=== PATIENT | female | born 1960 | race Caucasian/White ===

== ENCOUNTER 2016-11-14 08:51 | Emergency (ER) | payer OTHER ==
--- NOTE | 2016-11-14 09:49 | ED NURSING NOTES ---
Clinical Report - Nurses [facility] [address] [place] [address] 11/14/2016 8:53 Patient: LEAH VICENTE TRIAGE Triage time 09:01. Acuity: LEVEL 5. Chief Complaint: LEFT UPPER TOOTHACHE. 09:04 11/14/16. 09:04 11/14/16. ( pt had tooth extracted, left upper molar. Pt states now she has dental pain left upper area.). --09:08 Kentrell Don R.N. 09:02 11/14/16. BP: 175/94. HR: 110. RR: 18. O2 saturation: 100% on room air. Temp: 97.9 F (oral). --09:08 Kentrell Don R.N. 09:08 11/14/16. Pain level now: 06/18. --09:08 Kentrell Don R.N. Weight: 87.5 kg stated. Height/Length: 67 inches Per Patient. BMI: 30.2. --09:04 Kentrell Don R.N. Medications Acyclovir Oral 400 mg, 3x a day. ALPRAZolam Oral 1 mg, as needed. Atorvastatin Calcium Oral 40 mg, daily. Baclofen Oral 10 mg, as needed. Clobetasol Propionate External. Diltiazem HCl ER Oral 360 mg , daily. Estradiol Oral (Tablet 0.5 mg), daily. Gabapentin Oral 600 mg, 3x a day. HYDROmorphone HCl Oral 2 mg, 3x a day. Insulin Isophane Human Subcutaneous 22 units, 2x a day. Lisinopril Oral 40 mg, daily. Metoprolol Tartrate Oral 50 mg. Morphine Sulfate ER Oral 15 mg . Nabumetone Oral (Tablet 500 mg), 2 x day. Venlafaxine HCl Oral 225 mg , daily. --09:06 Kentrell Don R.N. Amoxicillin Oral. --09:35 Kentrell Don R.N. Medication/allergy information source: the patient. --09:08 Kentrell Don R.N. Allergies Percocet. Tape adhesive. Varenicline. (Chantix) Vicodin. --09:07 Kentrell Don R.N. History Arrived by private vehicle. Historian: patient. Unaccompanied. Primary physician (CARMELO GASPAR). 09:04 11/14/16. Onset. (Monday). 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 PAST MEDICAL HX: The patient has had a hysterectomy. Immunizations not up to date. SOCIAL HX: Current every day light tobacco smoker (cigarette)- less than 1/2 a pack per day. No alcohol use or drug use. No infectious disease exposure. ABUSE ASSESSMENT: No report of abuse. FALL RISK ASSESSMENT: Fall risk assessment completed. No fall risk identified. NUTRITIONAL RISK ASSESSMENT: The nutritional risk assessment revealed no deficiencies. FUNCTIONAL ASSESSMENT: Functional assessment: no impairments noted. LEARNING NEEDS ASSESSMENT: The learning needs assessment revealed no barriers. SKIN INTEGRITY ASSESSMENT: Skin integrity risk assessment completed. No skin integrity risk identified. --09:08 Kentrell Don R.N. PROBLEMS: Pyelonephritis. Fibromyalgia. Panic Attack. Herpes Simplex. Hypercholesterolemia. Hypothyroidism. Depression. Lumbar Radiculopathy. Chronic pain. Atrial Fibrillation. Bipolar Disorder. Neuropathy. Lumbar stenosis. Sciatica. Hypertension. Diabetes Mellitus. --09:07 Kentrell Don R.N. ADDITIONAL SURGERIES: Back Surgery. Cardiac Surgery. Cholecystectomy. . Dental Surgery. Hysterectomy. --09:07 Kentrell Don R.N. Assessment 09:04 11/14/16. --09:08 Kentrell Don R.N. Interventions 09:04 11/14/16. 09:04 11/14/16. ID and allergy band on patient. --09:08 Kentrell Don R.N. PHYSICAL ASSESSMENT 09:09 11/14/16. Ambulatory to room. GENERAL / NEURO / PSYCH: Alert. Oriented X 4. Appears in pain. HEENT: Facial swelling present left upper. CVS: Capillary refill less than 2 seconds. SKIN: Skin is warm and dry. --09:09 Kentrell Don R.N. NURSING PROGRESS NOTES 09:10 11/14/16. The plan of care for this patient has been created. Head of bed elevated. Reassurance given. Two patient identifiers checked. Call light placed in reach. Side rails up x 1. Bed placed in lowest position. Brakes of bed on. Brakes of chair on. --09:10 Kentrell Don R.N. 09:10 11/14/16. Patient ready for evaluation- chart flagged and ED physician notified. --09:10 Kentrell Don R.N. DISPOSITION / DISCHARGE 09:57 11/14/16. Condition at departure: unchanged. Discharge instructions provided and reviewed with the patient. Patient verbalized understanding. Written instructions provided in Maltese. The patient was discharged by the physician. She was discharged home and unaccompanied at time of discharge. She left the Emergency Department ambulatory and via private vehicle. FALL RISK ASSESSMENT: Fall risk assessment completed. No fall risk identified. --09:57 Maribell Mai R.N. 09:54 11/14/16. BP: 155/96. HR: 120. RR: 16. O2 saturation: 96%. Temp: 98.2 F (oral). Pain level now: 06/18. --09:57 Maribell Mai R.N. Departure time: :57. --10:00 Maribell Mai R.N. 10:06 11/14/16. ( aware of rapid heart rate on DC). --10:06 Kentrell Don R.N. Locked/Released at 11/14/2016 10:06 by Kentrell Don R.N.
--- NOTE | 2016-11-14 09:49 | ED CLINICAL REPORT ---
Clinical Report - Physicians/Mid Levels [facility] [address] [place] [address] 11/14/2016 8:53 [id number] Time Seen: 09:03. Arrived- By private vehicle. Historian- patient. HISTORY OF PRESENT ILLNESS Chief Complaint: DENTAL PAIN. This started about 5 days ago and is still present and now worse. It was abrupt in onset. Pain described as moderate. The patient has had toothache and jaw pain. (the patient underwent a dental extraction last week. Since then she has had increasing pain and swelling around the site of the extraction with scant drainage. She was prescribed amoxicillin but says that in spite of this it is getting worse.). REVIEW OF SYSTEMS No chills, fever, sweats, calf pain or chest pain. No cough, difficulty breathing, pedal edema, palpitations or abdominal pain. No constipation, diarrhea, nausea, vomiting or urinary problems. All systems otherwise negative, except as recorded above. PAST HISTORY Problems: Pyelonephritis. Fibromyalgia. Panic Attack. Herpes Simplex. Hypercholesterolemia. Hypothyroidism. Depression. Lumbar Radiculopathy. Chronic pain. Atrial Fibrillation. Bipolar Disorder. Neuropathy. Lumbar stenosis. Sciatica. Hypertension. Diabetes Mellitus. Additional Surgeries: Back Surgery. Cardiac Surgery. Cholecystectomy. . Dental Surgery. Hysterectomy. Medications: Amoxicillin Oral. Acyclovir Oral 400 mg, 3x a day. ALPRAZolam Oral 1 mg, as needed. Atorvastatin Calcium Oral 40 mg, daily. Baclofen Oral 10 mg, as needed. Clobetasol Propionate External. Diltiazem HCl ER Oral 360 mg , daily. Estradiol Oral (Tablet 0.5 mg), daily. Gabapentin Oral 600 mg, 3x a day. HYDROmorphone HCl Oral 2 mg, 3x a day. Insulin Isophane Human Subcutaneous 22 units, 2x a day. Lisinopril Oral 40 mg, daily. Metoprolol Tartrate Oral 50 mg. Morphine Sulfate ER Oral 15 mg . Nabumetone Oral (Tablet 500 mg), 2 x day. Venlafaxine HCl Oral 225 mg , daily. Allergies: Percocet. Tape adhesive. Varenicline. (Chantix) Vicodin. SOCIAL HISTORY Current every day light tobacco smoker (cigarette)- less than 1/2 a pack per day. No alcohol use or drug use. FAMILY HISTORY Denies family medical history. ADDITIONAL NOTES The nursing notes have been reviewed. PHYSICAL EXAM Vital Signs: 11/14/2016 09:02 BP: 175/94. HR: 110. RR: 18. O2 saturation: 100%. Temp: 97.9 F. Have been reviewed. Heart rate: 88 regular per my evaluation. Appearance: Alert. Eyes: Pupils equal, round and reactive to light. ENT: Severe dental tenderness with gingival tenderness, induration and swelling (upper left premolars) (Surrounding her extraction site). Pharynx normal. No trismus present. Uvula midline. Neck: Trachea midline. No adenopathy. Thyroid normal. Neck supple. CVS: Normal heart rate and rhythm. Heart sounds normal. Respiratory: No respiratory distress. Breath sounds normal. Abdomen: Soft. No organomegaly. Skin: Normal skin color. Normal skin turgor. Extremities: Extremities exhibit normal ROM. PROGRESS AND PROCEDURES Course of Care: Patient is stable. Patient/family counseled. Old medical records reviewed. Disposition: Discharged. Condition: stable. CLINICAL IMPRESSION Severe dental pain. INSTRUCTIONS Drink plenty of fluids. Warnings: Further evaluation is necessary. GENERAL WARNINGS: Return or contact your physician immediately if your condition worsens or changes unexpectedly, if not improving as expected, or if other problems arise. Your Current Medications: STOP TAKING THE FOLLOWING MEDICATIONS: Amoxicillin Oral. CONTINUE TAKING THE FOLLOWING MEDICATIONS: Acyclovir Oral : 400 mg 3x a day. ALPRAZolam Oral : 1 mg, prn. Atorvastatin Calcium Oral : 40 mg daily. Baclofen Oral : 10 mg, prn. Clobetasol Propionate External. Diltiazem HCl ER Oral : 360 mg daily. Estradiol Oral : Tablet 0.5 mg, daily. Gabapentin Oral : 600 mg 3x a day. HYDROmorphone HCl Oral : 2 mg 3x a day. Insulin Isophane Human Subcutaneous : 22 units 2x a day. Lisinopril Oral : 40 mg daily. Metoprolol Tartrate Oral : 50 mg. Morphine Sulfate ER Oral : 15 mg. Nabumetone Oral : Tablet 500 mg, 2 x day. Venlafaxine HCl Oral : 225 mg daily. Prescription Medications: Clindamycin 300 mg: take 1 capsule orally every 6 hours for 7 days. No refills. Follow-up: Follow up with a dentist today. Call for the next available appointment. Understanding of the discharge instructions verbalized by patient. (Electronically signed by Say Verduzco MD 11/14/2016 10:58)
--- NOTE | 2016-11-14 10:59 | ED MED RECONCILIATION SUMMARY ---
Patient: LEAH VICENTE Medication Reconciliation Report [facility] VisitID: [id number] [address] [place] [address] 56y, F Registration Date/Time: 11/14/2016 Weight: 87.5 kg Height/Length: 67 in. BMI: 30.2 ALLERGIES: Percocet, Tape adhesive, Varenicline, Vicodin The patient's Home Medications are listed below: STOP TAKING THE FOLLOWING MEDICATIONS: Amoxicillin Oral CONTINUE TAKING THE FOLLOWING MEDICATIONS: Acyclovir Oral 400 mg, 3x a day ALPRAZolam Oral 1 mg Atorvastatin Calcium Oral 40 mg, daily Baclofen Oral 10 mg Clobetasol Propionate External Diltiazem HCl ER Oral 360 mg , daily Estradiol Oral (0.5 mg), daily Gabapentin Oral 600 mg, 3x a day HYDROmorphone HCl Oral 2 mg, 3x a day Insulin Isophane Human Subcutaneous 22 units, 2x a day Lisinopril Oral 40 mg, daily Metoprolol Tartrate Oral 50 mg Morphine Sulfate ER Oral 15 mg Nabumetone Oral (500 mg), 2 x day Venlafaxine HCl Oral 225 mg , daily The source(s) of the original Home Medication information: patient The following Medications were given to the patient in the Emergency Department: None. The following Medications were prescribed to the patient: Clindamycin 300 mg: take 1 capsule orally every 6 hours for 7 days. No refills. -- Say Verduzco MD
--- NOTE | 2016-11-14 10:59 | ED MAR SUMMARY ---
..... Medication Administration Record [facility] [address] [place], [place] [id number] Patient: LEAH VICENTE Visit ID: [id number] 56y, F Weight: 87.5 kg Height/Length: 67 in BMI: 30.2 ALLERGIES: Percocet, Tape adhesive, Varenicline, Vicodin
--- NOTE | 2016-11-14 10:59 | ED MAR SUMMARY ---
..... Medication Administration Record [facility] [address], [place] [id number] Patient: LEAH VICENTE Visit ID: [id number] 56y, F Weight: 87.5 kg Height/Length: 67 in BMI: 30.2 ALLERGIES: Percocet, Tape adhesive, Varenicline, Vicodin
--- NOTE | 2016-11-14 10:59 | ED MED RECONCILIATION SUMMARY ---
Patient: LEAH VICENTE Medication Reconciliation Report [facility] VisitID: [id number] [address] [place] [address] 56y, F Registration Date/Time: 11/14/2016 Weight: 87.5 kg Height/Length: 67 in. BMI: 30.2 ALLERGIES: Percocet, Tape adhesive, Varenicline, Vicodin The patient's Home Medications are listed below: STOP TAKING THE FOLLOWING MEDICATIONS: Amoxicillin Oral CONTINUE TAKING THE FOLLOWING MEDICATIONS: Acyclovir Oral 400 mg, 3x a day ALPRAZolam Oral 1 mg Atorvastatin Calcium Oral 40 mg, daily Baclofen Oral 10 mg Clobetasol Propionate External Diltiazem HCl ER Oral 360 mg , daily Estradiol Oral (0.5 mg), daily Gabapentin Oral 600 mg, 3x a day HYDROmorphone HCl Oral 2 mg, 3x a day Insulin Isophane Human Subcutaneous 22 units, 2x a day Lisinopril Oral 40 mg, daily Metoprolol Tartrate Oral 50 mg Morphine Sulfate ER Oral 15 mg Nabumetone Oral (500 mg), 2 x day Venlafaxine HCl Oral 225 mg , daily The source(s) of the original Home Medication information: patient The following Medications were given to the patient in the Emergency Department: None. The following Medications were prescribed to the patient: Clindamycin 300 mg: take 1 capsule orally every 6 hours for 7 days. No refills. -- Say Verduzco MD
--- NOTE | 2016-11-14 10:59 | ED DISCHARGE INSTRUCTIONS ---
Patient: LEAH VICENTE General Instructions [facility] VisitID: [id number] [place] [address] 56y, F Registration Date/Time: 11/14/2016 Severe dental pain. INSTRUCTIONS Drink plenty of fluids. Warnings: Further evaluation is necessary. GENERAL WARNINGS: Return or contact your physician immediately if your condition worsens or changes unexpectedly, if not improving as expected, or if other problems arise. Your Current Medications: STOP TAKING THE FOLLOWING MEDICATIONS: Amoxicillin Oral. CONTINUE TAKING THE FOLLOWING MEDICATIONS: Acyclovir Oral : 400 mg 3x a day. ALPRAZolam Oral : 1 mg, prn. Atorvastatin Calcium Oral : 40 mg daily. Baclofen Oral : 10 mg, prn. Clobetasol Propionate External. Diltiazem HCl ER Oral : 360 mg daily. Estradiol Oral : Tablet 0.5 mg, daily. Gabapentin Oral : 600 mg 3x a day. HYDROmorphone HCl Oral : 2 mg 3x a day. Insulin Isophane Human Subcutaneous : 22 units 2x a day. Lisinopril Oral : 40 mg daily. Metoprolol Tartrate Oral : 50 mg. Morphine Sulfate ER Oral : 15 mg. Nabumetone Oral : Tablet 500 mg, 2 x day. Venlafaxine HCl Oral : 225 mg daily. Prescription Medications: Clindamycin 300 mg: take 1 capsule orally every 6 hours for 7 days. No refills. Follow-up: Follow up with a dentist today. Call for the next available appointment. Understanding of the discharge instructions verbalized by patient. ADDITIONAL INFORMATION Dental Pain A crack or cavity in the tooth, which exposes the sensitive inner area of the tooth can cause tooth pain. An infection in the gum or the root of the tooth can cause pain and swelling. The pain is often made worse by drinking hot or cold fluids, or biting on hard foods. Pain may spread from the tooth to the ear or jaw on the same side. Home Care: Avoid hot and cold foods and liquids since your tooth may be sensitive to temperature changes. If your tooth is chipped or cracked, or if there is a large open cavity, apply OIL OF CLOVES (available [id number] in drug stores) directly to the tooth to reduce pain. Some pharmacies carry an [id number] "toothache kit." This contains a paste, which can be applied over the exposed tooth to decrease sensitivity. A cold pack on your jaw over the sore area may help reduce pain. You may use acetaminophen (Tylenol) or ibuprofen (Motrin, Advil) to control pain, unless another medicine was prescribed. [ NOTE: If you have chronic liver or kidney disease or ever had a stomach ulcer or GI bleeding, talk with your doctor before using these medicines.] If you have signs of an infection, an antibiotic will be given. Take it as directed. Follow-Up as directed with a dentist. Your pain may go away with the treatment given. However, only a dentist can fully evaluate and treat the cause and prevent the pain from coming back again. TOOTHACHE IS A SIGN OF DISEASE IN YOUR TOOTH AND SHOULD BE EXAMINED AND TREATED BY A DENTIST. Get Prompt Medical Attention if any of the following occur: Your face becomes swollen or red Pain worsens or spreads to the neck Fever over 100.4 F (38.0 C) Unusual drowsiness; headache or stiff neck; weakness or fainting Pus drains from the tooth Difficulty swallowing or breathing Clindamycin Hydrochloride Oral capsule What is this medicine? CLINDAMYCIN (KLIN da ROCIO sin) is a lincosamide antibiotic. It is used to treat certain kinds of bacterial infections. It will not work for colds, flu, or other viral infections. How should I use this medicine? Take this medicine by mouth with a full glass of water. Follow the directions on the prescription label. You can take this medicine with food or on an empty stomach. If the medicine upsets your stomach, take it with food. Take your medicine at regular intervals. Do not take your medicine more often than directed. Take all of your medicine as directed even if you think your are better. Do not skip doses or stop your medicine early. Talk to your technical support consultant regarding the use of this medicine in children. Special care may be needed. What side effects may I notice from receiving this medicine? Side effects that you should report to your doctor or health reservoir caretaker as soon as possible: allergic reactions like skin rash, itching or hives, swelling of the face, lips, or tongue dark urine pain on swallowing redness, blistering, peeling or loosening of the skin, including inside the mouth unusual bleeding or bruising unusually weak or tired yellowing of eyes or skin Side effects that usually do not require medical attention (report to your doctor or health reservoir caretaker if they continue or are bothersome): diarrhea itching in the rectal or genital area joint pain nausea, vomiting stomach pain What may interact with this medicine? chloramphenicol erythromycin kaolin products What if I miss a dose? If you miss a dose, take it as soon as you can. If it is almost time for your next dose, take only that dose. Do not take double or extra doses. Where should I keep my medicine? Keep out of the reach of children. Store at room temperature between 20 and 25 degrees C (68 and 77 degrees F). Throw away any unused medicine after the expiration date. What should I tell my health care provider before I take this medicine? They need to know if you have any of these conditions: kidney disease liver disease stomach problems like colitis an unusual or allergic reaction to clindamycin, lincomycin, or other medicines, foods, dyes like tartrazine or preservatives or trying to get breast-feeding What should I watch for while using this medicine? Tell your doctor or healthcare professional if your symptoms do not start to get better or if they get worse. Do not treat diarrhea with over the counter products. Contact your doctor if you have diarrhea that lasts more than 2 days or if it is severe and watery. You have been given the following additional information: Dental Pain Clindamycin Hydrochloride Oral capsule (Electronically signed by Say Verduzco MD 11/14/2016 10:58)
--- NOTE | 2016-11-14 10:59 | ED DISCHARGE INSTRUCTIONS ---
Patient: LEAH VICENTE General Instructions [facility] VisitID: [id number] [place] [address] 56y, F Registration Date/Time: 11/14/2016 Severe dental pain. INSTRUCTIONS Drink plenty of fluids. Warnings: Further evaluation is necessary. GENERAL WARNINGS: Return or contact your physician immediately if your condition worsens or changes unexpectedly, if not improving as expected, or if other problems arise. Your Current Medications: STOP TAKING THE FOLLOWING MEDICATIONS: Amoxicillin Oral. CONTINUE TAKING THE FOLLOWING MEDICATIONS: Acyclovir Oral : 400 mg 3x a day. ALPRAZolam Oral : 1 mg, prn. Atorvastatin Calcium Oral : 40 mg daily. Baclofen Oral : 10 mg, prn. Clobetasol Propionate External. Diltiazem HCl ER Oral : 360 mg daily. Estradiol Oral : Tablet 0.5 mg, daily. Gabapentin Oral : 600 mg 3x a day. HYDROmorphone HCl Oral : 2 mg 3x a day. Insulin Isophane Human Subcutaneous : 22 units 2x a day. Lisinopril Oral : 40 mg daily. Metoprolol Tartrate Oral : 50 mg. Morphine Sulfate ER Oral : 15 mg. Nabumetone Oral : Tablet 500 mg, 2 x day. Venlafaxine HCl Oral : 225 mg daily. Prescription Medications: Clindamycin 300 mg: take 1 capsule orally every 6 hours for 7 days. No refills. Follow-up: Follow up with a dentist today. Call for the next available appointment. Understanding of the discharge instructions verbalized by patient. ADDITIONAL INFORMATION Dental Pain A crack or cavity in the tooth, which exposes the sensitive inner area of the tooth can cause tooth pain. An infection in the gum or the root of the tooth can cause pain and swelling. The pain is often made worse by drinking hot or cold fluids, or biting on hard foods. Pain may spread from the tooth to the ear or jaw on the same side. Home Care: Avoid hot and cold foods and liquids since your tooth may be sensitive to temperature changes. If your tooth is chipped or cracked, or if there is a large open cavity, apply OIL OF CLOVES (available [id number]-memkxxo in drug stores) directly to the tooth to reduce pain. Some pharmacies carry an hxyk-mnd-boeedjn "toothache kit." This contains a paste, which can be applied over the exposed tooth to decrease sensitivity. A cold pack on your jaw over the sore area may help reduce pain. You may use acetaminophen (Tylenol) or ibuprofen (Motrin, Advil) to control pain, unless another medicine was prescribed. [ NOTE: If you have chronic liver or kidney disease or ever had a stomach ulcer or GI bleeding, talk with your doctor before using these medicines.] If you have signs of an infection, an antibiotic will be given. Take it as directed. Follow-Up as directed with a dentist. Your pain may go away with the treatment given. However, only a dentist can fully evaluate and treat the cause and prevent the pain from coming back again. TOOTHACHE IS A SIGN OF DISEASE IN YOUR TOOTH AND SHOULD BE EXAMINED AND TREATED BY A DENTIST. Get Prompt Medical Attention if any of the following occur: Your face becomes swollen or red Pain worsens or spreads to the neck Fever over 100.4 F (38.0 C) Unusual drowsiness; headache or stiff neck; weakness or fainting Pus drains from the tooth Difficulty swallowing or breathing Clindamycin Hydrochloride Oral capsule What is this medicine? CLINDAMYCIN (KLIN da ROCIO sin) is a lincosamide antibiotic. It is used to treat certain kinds of bacterial infections. It will not work for colds, flu, or other viral infections. How should I use this medicine? Take this medicine by mouth with a full glass of water. Follow the directions on the prescription label. You can take this medicine with food or on an empty stomach. If the medicine upsets your stomach, take it with food. Take your medicine at regular intervals. Do not take your medicine more often than directed. Take all of your medicine as directed even if you think your are better. Do not skip doses or stop your medicine early. Talk to your clinical informatics spec regarding the use of this medicine in children. Special care may be needed. What side effects may I notice from receiving this medicine? Side effects that you should report to your doctor or health health care facilities inspector as soon as possible: allergic reactions like skin rash, itching or hives, swelling of the face, lips, or tongue dark urine pain on swallowing redness, blistering, peeling or loosening of the skin, including inside the mouth unusual bleeding or bruising unusually weak or tired yellowing of eyes or skin Side effects that usually do not require medical attention (report to your doctor or health health care facilities inspector if they continue or are bothersome): diarrhea itching in the rectal or genital area joint pain nausea, vomiting stomach pain What may interact with this medicine? chloramphenicol erythromycin kaolin products What if I miss a dose? If you miss a dose, take it as soon as you can. If it is almost time for your next dose, take only that dose. Do not take double or extra doses. Where should I keep my medicine? Keep out of the reach of children. Store at room temperature between 20 and 25 degrees C (68 and 77 degrees F). Throw away any unused medicine after the expiration date. What should I tell my health care provider before I take this medicine? They need to know if you have any of these conditions: kidney disease liver disease stomach problems like colitis an unusual or allergic reaction to clindamycin, lincomycin, or other medicines, foods, dyes like tartrazine or preservatives or trying to get breast-feeding What should I watch for while using this medicine? Tell your doctor or healthcare professional if your symptoms do not start to get better or if they get worse. Do not treat diarrhea with over the counter products. Contact your doctor if you have diarrhea that lasts more than 2 days or if it is severe and watery. You have been given the following additional information: Dental Pain Clindamycin Hydrochloride Oral capsule (Electronically signed by Say Verduzco MD 11/14/2016 10:58)
== END 2016-11-14 09:57 | disposition home or self-care (01) ==
LOC: ED SRH 08:51
DX: K08.89 Other specified disorders of teeth and supporting structures (principal); I10 Essential (primary) hypertension; E11.9 Type 2 diabetes mellitus without complications; F17.210 Nicotine dependence, cigarettes, uncomplicated; Z79.899 Other long term (current) drug therapy; Z88.5 Allergy status to narcotic agent; Z88.8 Allergy status to other drugs, medicaments and biological substances; Z79.4 Long term (current) use of insulin

== ENCOUNTER 2017-04-22 13:34 | Emergency (ER) | payer OTHER ==
--- NOTE | 2017-04-22 15:41 | ED CLINICAL REPORT ---
Clinical Report - Physicians/Mid Levels [facility] [address] [place] [address] 04/22/2017 13:34 [id number] Time Seen: 13:50. Arrived- By private vehicle. Historian- patient. HISTORY OF PRESENT ILLNESS Chief Complaint: low back pain. This started several days ago and is still present. It was abrupt in onset and has been constant and waxing/waning. (She says that she is "dehydrated.". She reports symptoms of increased hunger and thirst and urination." It goes right through me." She is taking metformin and glimepiride for diabetes. In the past she was on Lantus and Humalog however this was stopped about 3 months ago. She reports her hemoglobin A1c was 13 but came down to 9 She doesn't know what it is now.). Similar symptoms previously: Many times, chronically. Recent medical care: The patient was seen recently at another facility in the emergency department. Seen for similar symptoms. Evaluation/treatment: x-rays and labs. ( she was seen at [facility] for similar symptoms. She reports that they did lab work treated her with medications and IV fluids. She reports they did a CT scan which was normal.). REVIEW OF SYSTEMS No chills, fever, sweats, calf pain or chest pain. No cough, difficulty breathing, pedal edema, palpitations or abdominal pain. No constipation, diarrhea, nausea or vomiting. She has had severe lower back pain. She has had diabetic symptoms, including polydipsia, polyuria, polyphagia and fatigue. It has been similar to previous symptoms. All systems otherwise negative, except as recorded above. PAST HISTORY PCP - CARMELO GASPAR at the [facility]. Problems: Dental Pain. Pyelonephritis. Fibromyalgia. Panic Attack. Herpes Simplex. Hypercholesterolemia. Hypothyroidism. Depression. Lumbar Radiculopathy. Chronic pain. Atrial Fibrillation. Bipolar Disorder. Neuropathy. Lumbar stenosis. Sciatica. Hypertension. Diabetes Mellitus. Additional Surgeries: Back Surgery. Cardiac Surgery. Cholecystectomy. . Dental Surgery. Hysterectomy. Medications: Remeron Oral (Tablet 30 mg) 1 tablet, at bedtime. Venlafaxine HCl Oral 225 mg , daily. Zofran Oral (Tablet 4 mg) 1 tablet, 3x a day. MetFORMIN HCl Oral (Tablet 500 mg) 4 tablets, at bedtime. Amaryl Oral (Tablet 1 mg) 1 tablet, 2x a day. Clotrimazole External. Combivent. Clotrima. Nabumetone Oral (Tablet 500 mg), 2 x day. ALPRAZolam Oral 1 mg, as needed. Baclofen Oral 10 mg, as needed. Clobetasol Propionate External. Diltiazem HCl ER Oral 360 mg , daily. Gabapentin Oral 600 mg, 3x a day. Metoprolol Tartrate Oral 50 mg. Morphine Sulfate ER Oral 15 mg . Allergies: Chantix. Medical tape. SOCIAL HISTORY Current every day heavy tobacco smoker (cigarette)- less than 1 pack per day. No alcohol use or drug use. ADDITIONAL NOTES The nursing notes have been reviewed. PHYSICAL EXAM Vital Signs: 04/22/2017 13:50 BP: 150/78. HR: 94. RR: 16. O2 saturation: 93%. Temp: 98.1 F. Pain level now: 03/18. Have been reviewed. Appearance: Alert. She is morbidly obese. Eyes: Pupils equal, round and reactive to light. ENT: Pharynx normal. Neck: Normal inspection. Neck supple. CVS: Normal heart rate and rhythm. Heart sounds normal. Respiratory: No respiratory distress. Decreased air movement. Abdomen: No visible injury. Soft and nontender. Bowel sounds normal. No organomegaly. No mass. Obese. Back: Moderate tenderness in the left mid and lower lumbar area. Severe muscle spasm in the left mid and lower lumbar spine region. No CVA tenderness. Skin: Skin warm and dry. Normal skin color. Normal skin turgor. Extremities: Extremities exhibit normal ROM. No calf tenderness. No lower extremity edema. LABS, X-RAYS, AND EKG LS-Spine X-rays: (IMPRESSION: 1. Loss of lordosis suggestive of muscular spasm 2. Mild L4-5 and severe L5-S1 disc space narrowing). The X-rays were interpreted by the radiologist and contemporaneously by me. Laboratory Tests: UA-Culture if indicated: (FRANCISCO JAVIER: 04/22/2017 14:17) ( MsgRcvd 04/22/2017 14:46) Final results Test Result Flag Units (Reference) URINE COLOR YELLOW URINE APPEARANCE CLEAR URINE GLUCOSE 3+ (NEGATIVE) URINE BILIRUBIN NEGATIVE (NEGATIVE) URINE KETONE NEGATIVE (NEGATIVE) URINE SPECIFIC GRAVITY 1.010 (1.010-1.030) URINE PH 6.0 (5.0-8.0) URINE PROTEIN NEGATIVE (NEGATIVE) URINE UROBILINOGEN 0.2 EU/dL (0.2-1.0) URINE NITRITE NEGATIVE (NEGATIVE) URINE BLOOD NEGATIVE (NEGATIVE) URINE LEUK ESTERASE NEGATIVE (NEGATIVE) URINE RBC NONE SEEN rbc/hpf (0-1) URINE WBC NONE SEEN wbc/hpf (0-1) URINE EPITHELIAL CELLS 3-5 EPI/hpf (0-5) URINE BACTERIA MANY (4+) (NONE SEEN) URINE COMMENT CULTURE INDICATED URINE CULTURES ARE SET-UP BASED ON THE FOLLOWING CRITERIA:POSITIVE NITRITEPOSITIVE LEUKOCYTE ESTERASEGREATER THAN 10 WHITE BLOOD CELLSMODERATE (2+) OR GREATER BACTERIA CBC w Diff: (FRANCISCO JAVIER: 04/22/2017 14:17) ( [facility] 04/22/2017 14:31) Final results Test Result Flag Units (Reference) WHITE BLOOD COUNT 15.2 H K/uL (4.5-11.5) RED BLOOD COUNT 4.46 M/uL (4.00-5.20) HEMOGLOBIN 13.6 gm/dL (12.0-16.0) HEMATOCRIT 40.6 % (36.0-46.0) MEAN CELL VOLUME 91 fL (80-100) MEAN CORPUSCULAR HGB 30 pg (26-34) MEAN CORPUSCULAR HGB CONC 33 g/dL (31-37) RED CELL DISTRIBUTION WIDTH 13.8 % (11.6-14.8) PLATELET COUNT 329 K/uL (150-400) NEUTROPHIL % 73.5 % (50-75) LYMPH % 17.8 L % (25-40) MONO % 4.6 % (3-14) EOSINOPHIL % 3.1 % (0-4) BASOPHIL % 1.0 % (0-2) Acetone, Serum: (FRANCISCO JAVIER: 04/22/2017 14:17) ( [facility] 04/22/2017 15:06) Final results Test Result Flag Units (Reference) ACETONE, SERUM QUALITATIVE NEGATIVE (NEGATIVE) CMP: (FRANCISCO JAVIER: 04/22/2017 14:17) ( MsgRcvd 04/22/2017 14:55) Final results Test Result Flag Units (Reference) GLUCOSE 620 *H mg/dL (70-110) CRITICAL RESULTS CALLEDCalled to LEAH MELGOZA ED 04/22/17 1454Were 2 patient identifiers used? YWas the result read back? Y BUN 24 H mg/dL (7-18) CREATININE 1.6 H mg/dL (0.6-1.3) Estimated GFR 35.70 mL/min Estimated GFR- 43.27 mL/min Note: Persistent reduction over 3 months in eGFR<60 mL/min/1.73 m2 defines CKD. Patients with eGFR values>=60 mL/min/1.73 m2 may also have CKD if evidence ofpersistent proteinuria. Additional information may be foundat www.kidney.org. SODIUM 132 L mmol/L (136-145) POTASSIUM 4.4 mmol/L (3.5-5.1) CHLORIDE 96 L mmol/L (98-107) CARBON DIOXIDE 23 mmol/L (21-32) CALCIUM 8.4 L mg/dL (8.5-10.1) TOTAL PROTEIN 6.5 g/dL (6.4-8.2) ALBUMIN 3.1 L g/dL (3.3-5.0) BILIRUBIN, TOTAL 0.3 mg/dL (0.0-1.0) ALKALINE PHOSPHATASE 133 H U/L (46-116) AST (SGOT) 13 L U/L (15-37) ALT (SGPT) 27 U/L (12-78) LIPASE 245 U/L (73-393) AMYLASE 39 U/L (25-115) ABG: (FRANCISCO JAVIER: 04/22/2017 15:03) ( MsgRcvd 04/22/2017 15:33) Final results Test Result Flag Units (Reference) FIO2 0.21 L % (20-101) ABG MODE OF DELIVERY RA MODIFIED JEFRY TEST POSITIVE? YES ABG PATIENT RESP RATE 18 /MIN ARTERIAL BLOOD GAS SITE RR ARTERIAL BLOOD GAS pH 7.39 (7.35-7.45) ABG PCO2 39.3 mmHg (35-45) ABG PO2 63.0 L mmHg (80.0-100.0) ABG BASE EXCESS -1.1 H mmol/L (-6.0--6.0) ABG HCO3 23.7 mmol/L (20.0-26.0) ABG TCO2 25.0 mmol/L (24.0-30.0) ABG NpPxS3c 42.2 H mmHg (7.0-14.0) *NOTE: Normal rangeis based on aFIO2 of 21% ABG SAT O2 93.2 L % (95.1-100.0) ABG TOTAL HEMOGLOBIN 13.0 g/dL (12.0-16.0) ABG O2 HEMOGLOBIN 87.7 L % (95.0-100.0) ABG CARBOXYHEMOGLOBIN 5.5 H % (0.5-1.5) ABG METHEMOGLOBIN 0.4 % (0.4-1.5) ABG RHEMOGLOBIN 6.4 % . PROGRESS AND PROCEDURES Course of Care: Patient is stable. Patient/family counseled. Old medical records reviewed. Disposition: Discharged. Condition: stable. CLINICAL IMPRESSION Chronic lumbar back pain associated with degenerative disc disease of the lumbar spine. Poorly controlled type 2 diabetes with hyperglycemia and hyperosmolar nonketotic state. INSTRUCTIONS No driving or operating machinery while taking medication. Sedative medication was given during your visit. (talk with your doctor about returning to the use of insulin as discussed.). Warnings: Further evaluation is necessary. GENERAL WARNINGS: Return or contact your physician immediately if your condition worsens or changes unexpectedly, if not improving as expected, or if other problems arise. Your Current Medications: CONTINUE TAKING THE FOLLOWING MEDICATIONS: ALPRAZolam Oral : 1 mg, prn. Amaryl Oral : Tablet 1 mg, 1 tablet 2x a day. Baclofen Oral : 10 mg, prn. Clobetasol Propionate External. Clotrima*. Clotrimazole External. Combivent*. Diltiazem HCl ER Oral : 360 mg daily. Gabapentin Oral : 600 mg 3x a day. MetFORMIN HCl Oral : Tablet 500 mg, 4 tablets at bedtime. Metoprolol Tartrate Oral : 50 mg. Morphine Sulfate ER Oral : 15 mg. Nabumetone Oral : Tablet 500 mg, 2 x day. Remeron Oral : Tablet 30 mg, 1 tablet at bedtime. Venlafaxine HCl Oral : 225 mg daily. Zofran Oral : Tablet 4 mg, 1 tablet 3x a day. Follow-up: Follow up with your doctor Monday in four days as scheduled. Understanding of the discharge instructions verbalized by patient. (Electronically signed by Say Verduzco MD 04/22/2017 19:17)
--- NOTE | 2017-04-22 15:41 | ED ORDER SUMMARY ---
..... Patient: LEAH VICENTE OrderSheet [facility] VisitID: [id number] [place] [address] 56y, F Registration Date/Time: 04/22/2017 ORDER SHEET Weight: 87 kg (estimated) Allergies: Chantix, Medical tape GENERAL ORDERS: CBC w Diff Urgent (14:12 04/22/2017 Williams POLLARD) (Ack 14:16 Mayra) (14:23 KKnebel R.N.) CMP Urgent (14:12 04/22/2017 Williams POLLARD) (Ack 14:16 Mayra) (14:23 KKnebel R.N.) Amylase Urgent (14:12 04/22/2017 Williams POLLARD) (Ack 14:16 Mayra) (14:23 KKnebel R.N.) Lipase Urgent (14:12 04/22/2017 Williams POLLARD) (Ack 14:16 Mayra) (14:23 KKnebel R.N.) UA-Culture if indicated Urgent (14:12 04/22/2017 Williams POLLARD) (Ack 14:16 Mayra) (14:23 KKnebel R.N.) Acetone, Serum Urgent (14:55 04/22/2017 Williams POLLARD) (15:02 KKnebel R.N.) ABG (G) Urgent (15:03 04/22/2017 Williams POLLARD) (Ack 15:16 AMcQuoid ER Tech1) (15:35 KKnebel R.N.) Lumbar Spine 2 or 3V Urgent (15:05 04/22/2017 Williams POLLARD) (Ack 15:16 AMcQuoid ER Tech1) (15:17 KKnebel R.N.) POC Glucose (15:37 04/22/2017 Williams POLLARD) (15:44 KKnebel R.N.) - (Hemoglobin A1c) (18:43 04/22/2017 Williams POLLARD) (18:52 AMcQuoid ER Tech1) MEDICATION ORDERS: Nicotine Topical 21 mg (NOW) (15:46 04/22/2017 Williams POLLARD) (15:47 KKnebel R.N.) Insulin Reg Subcut 6 units (HIGH ALERT MEDICATION, NOW) (17:23 04/22/2017 Shazia R.N. verbal order read back to Williams POLLARD) (17:24 Shazia R.N.) IV FLUIDS: IV NS : initial bolus 500 mL (1000 mL/hr), then 125 mL/hr for 4h (NOW); Urgent (14:12 04/22/2017 Williams POLLARD) (14:23 Shazia R.N.) (Cancelled: Other14:55 Williams POLLARD) IV NS : initial bolus 1000 mL (1000 mL/hr), then 1000 mL/hr for X2 (NOW); Urgent (14:55 04/22/2017 Williams POLLARD) (15:36 Shazia R.N.) Insulin Reg IV 6 units (HIGH ALERT MEDICATION, NOW) (15:02 04/22/2017 Williams POLLARD) (15:10 Shazia R.N.) Valium IV 2 mg (HIGH ALERT MEDICATION, NOW) (15:04 04/22/2017 Williams POLLARD) (15:35 Shazia R.N.) ORDER SHEET NOTES: [Electronically signed by Say Verduzco MD (19:17 04/22/2017)] [Electronically signed by Leah Dodson R.N. (21:19 04/22/2017)] [Electronically locked/signed by Leah Dodson R.N. (21:19 04/22/2017)]
--- NOTE | 2017-04-22 15:41 | ED NURSING NOTES ---
Clinical Report - Nurses Formerly [facility] [address] [place] [address] 04/22/2017 13:34 [id number] TRI[facility] Triage time 13:50 Apr 22 2017. Acuity: LEVEL 3. Chief Complaint: (left flank pain). Alert. No acute distress. ( pt states with her pain meds her pain in normally 10). TAYLOR COMA SCORE: Zion Coma Scale: 15- eyes open spontaneously (4); best verbal response- oriented x 4 (5); best motor response- obeys commands (6). --14:03 Leah Dodson R.N. 13:50 04/22/17. BP: 150/78. HR: 94. RR: 16. O2 saturation: 93%. Temp: 98.1 F. Pain level now: 03/18. --14:03 Leah Dodson R.N. Weight: 87 kg estimated. Height/Length: 67 inches Estimated. BMI: 30.1. --21:19 Leah Dodson R.N. Medications ALPRAZolam Oral 1 mg, as needed. Baclofen Oral 10 mg, as needed. Clobetasol Propionate External. Diltiazem HCl ER Oral 360 mg , daily. Gabapentin Oral 600 mg, 3x a day. Metoprolol Tartrate Oral 50 mg. Morphine Sulfate ER Oral 15 mg . --13:52 Leah Dodson R.N. Nabumetone Oral (Tablet 500 mg), 2 x day. --13:52 Leah Dodson R.N. Clotrima. --13:53 Leah Dodson R.N. Combivent. --13:54 Leah Dodson R.N. Amaryl Oral (Tablet 1 mg) 1 tablet, 2x a day. Clotrimazole External. --13:54 Leah Dodson R.N. MetFORMIN HCl Oral (Tablet 500 mg) 4 tablets, at bedtime. --13:55 Leah Dodson R.N. Zofran Oral (Tablet 4 mg) 1 tablet, 3x a day. --13:55 Leah Dodson R.N. Venlafaxine HCl Oral 225 mg , daily. --13:56 Leah Dodson R.N. Remeron Oral (Tablet 30 mg) 1 tablet, at bedtime. --13:56 Leah Dodson R.N. Allergies Chantix. --13:56 Leah Dodson R.N. Medical tape. --13:56 Leah Dodson R.N. History Arrived by private vehicle. Historian: patient. Onset. (about 4 days ago). No history of recent trauma. Treatment DURABLE MEDICAL EQUIPMENT TECHNICIAN: Recently seen at another facility; CT done; labs done- CBC, chemistries and urinalysis; treatment- pain medication and other medication. PAST MEDICAL HX: Tetanus status: up-to-date. Immunizations: up-to-date. SOCIAL HX: Current every day heavy tobacco smoker (cigarette)- less than 1 pack per day. No alcohol use or drug use. No infectious disease exposure. SELF HARM ASSESSMENT: A self harm assessment was performed. The patient answered "no" to the question "Do you have thoughts of harming or killing yourself?" and "Have you recently had thoughts about harming or killing others?". FALL RISK ASSESSMENT: Fall risk assessment completed. No fall risk identified. NUTRITIONAL RISK ASSESSMENT: The nutritional risk assessment revealed no deficiencies. LEARNING NEEDS ASSESSMENT: The learning needs assessment revealed no barriers. ABUSE ASSESSMENT: Abuse assessment: The patient was asked "Do you feel safe in your home?". FUNCTIONAL ASSESSMENT: Functional assessment performed: independent with the activities of daily living; mobility impairment present- this mobility impairment is an ongoing problem. The patient is under physician care for hers functional impairment. SKIN INTEGRITY ASSESSMENT: Skin integrity risk assessment completed. No skin integrity risk identified. --14:03 Leah Dodson R.N. PROBLEMS: Dental Pain. Pyelonephritis. Fibromyalgia. Panic Attack. Herpes Simplex. Hypercholesterolemia. Hypothyroidism. Depression. Lumbar Radiculopathy. Chronic pain. Atrial Fibrillation. Bipolar Disorder. Neuropathy. Lumbar stenosis. Sciatica. Hypertension. Diabetes Mellitus. --13:57 Leah Dodson R.N. ADDITIONAL SURGERIES: Back Surgery. Cardiac Surgery. Cholecystectomy. . Dental Surgery. Hysterectomy. --13:57 Leah Dodson R.N. Interventions ID band on patient. To room. --14:03 Leah Dodson R.N. PHYSICAL ASSESSMENT Ambulatory to room. GENERAL / NEURO / PSYCH: Alert. Oriented X 4. Appears in no acute distress. RESPIRATORY: Respirations not labored. CVS: Capillary refill less than 2 seconds. GI / : Abdomen soft and nontender. EXTREMITIES: ROM of extremities within normal limits. BACK: ( c/o left flank pain). Normal inspection of the neck and back. --14:05 Leah Dodson R.N. NURSING PROGRESS NOTES Patient gowned. Head of bed elevated. Patient identifiers checked. Call light placed in reach. Side rails up x 1. Bed placed in lowest position. Brakes of bed on. --14:05 Leah Dodson R.N. 14:17 04/22/2017 Site #1 started via IV in the right antecubital space with an 20g angiocath, with aseptic technique and good blood return; one attempt. Blood drawn: rainbow set. Labeled in the presence of the patient and sent to the lab. Saline lock flushed with 10 mL saline. --14:23 Leah Dodson R.N. 14:23 04/22/2017 Started bag #1 1000 mL IV Fluids IV NS (Saline); bolus of 500 mL over 30 minute(s) via site #1 via IV pump. Allergies verified and confirmed 5 rights. IV patency established. IV site checked: no pain, redness, or swelling. IV flushed thoroughly pre- and post-medication administration. --14:23 Leah Dodson R.N. 15:03 04/22/2017 IV Fluids IV NS via IV site #1 Rate Changed: bag #1 999 mg/hr via IV pump. IV patency established. IV site checked: no pain, redness, or swelling. IV flushed thoroughly. Confirmed 5 Rights (bolus additional 500cc per MD). --15:03 Leah Dodson R.N. 15:10 04/22/2017 Insulin REG IVP 6 unit given over 1 minute(s) via site #1. Allergies verified and confirmed 5 rights. IV patency established. IV site checked: no pain, redness, or swelling. IV flushed thoroughly pre- and post-medication administration. --15:10 Leah Dodson R.N. <<STRICKEN ENTRY-- 15:04/22/2017 IV Fluids IV NS Bag Change: bag #1 infused. Total amount infused: 1000. STARTED bag #2 (1000 mL) at 1000 mL/hr via IV pump. Confirmed 5 rights. IV patency established. IV site checked: no pain, redness, or swelling. IV flushed thoroughly. --15:28 Leah Dodson R.N. --END STRIKE>> Correction. duplicate charting --15:41 Leah Dodson R.N. 15:04/22/2017 IV Fluids IV NS Bag Change: bag #1 infused. Total amount infused: 1. STARTED bag #2 (1000 mL) at 1 mg/hr via IV pump. Confirmed 5 rights. IV patency established. IV site checked: no pain, redness, or swelling. IV flushed thoroughly. --15:41 Leah Dodson R.N. [facility]-- 15:04/22/2017 IV Fluids IV NS Discontinued: bag #1 completed. Total amount infused: 1000 mL. IV patency established. IV site checked: no pain, redness, or swelling. IV flushed thoroughly. --15:27 Leah Dodson R.N. --END STRIKE>> Correction. duplicate --15:31 Leah Dodson R.N. 15:27 04/22/2017 IV Fluids IV NS Discontinued: bag #1 completed. Total amount infused: 000 mL. IV patency established. IV site checked: no pain, redness, or swelling. IV flushed thoroughly. --15:31 Leah Dodson R.N. 15:30 04/22/2017 Valium (Diazepam) IVP 2 mg given over 2 minute(s) via site #1. Allergies verified, confirmed 5 rights and sedative warning given to the patient. IV patency established. IV site checked: no pain, redness, or swelling. IV flushed thoroughly pre- and post-medication administration. --15:35 Leah Dodson R.N. 15:31 04/22/2017 Started bag #1 1000 mL IV Fluids IV NS (Saline); bolus of 1000 mL over 1 hour(s) via site #1 via IV pump. Allergies verified and confirmed 5 rights. IV patency established. IV site checked: no pain, redness, or swelling. IV flushed thoroughly pre- and post-medication administration. --15:36 Leah Dodson R.N. Finger stick glucose: 419 mg/dL; performed by nurse; result shown to the ED physician. --15:42 Leah Dodson R.N. Reassessment after medication administered. She is calm and resting quietly. Overall patient status is the same- she states feels the same. GENERAL / NEURO / PSYCH: Alert. Oriented X 4. RESPIRATORY: No respiratory distress. BACK: The patient reports back pain. SKIN: Skin is warm and dry. Skin color within normal limits. --15:43 Leah Dodson R.N. 15:43 04/22/17. BP: 135/71. HR: 90. RR: 16. O2 saturation: 93%. Pain level now: 5/10. --15:43 Leah Dodson R.N. 15:47 04/22/2017 NICOTINE Topical Patch/Pad 21 mg. Applied to the left upper arm. Allergies verified and confirmed 5 rights. --15:47 Leah Dodson R.N. 16:11 04/22/17. BP: 135/83. HR: 89. RR: 17. O2 saturation: 95% on room air. Pain level now 5/10. --16:12 Chapis Lott R.N. The patient is calm and resting quietly and has had no adverse reaction. --16:12 Chapis Lott R.N. Finger stick glucose: 403; performed by nurse; result shown to the ED physician. --17:08 Stacie Ch R.N. 16:58 04/22/2017 IV Fluids IV NS Discontinued: bag #2 completed. Total amount infused: 1000 mL. IV patency established. IV site checked: no pain, redness, or swelling. IV flushed thoroughly. --17:23 Leah Dodson R.N. 17:24 04/22/2017 Insulin Reg Subcutaneous 6 unit given. Given in the right upper arm. Allergies verified and confirmed 5 rights. --17:24 Leah Dodson R.N. 17:28 04/22/2017 Insulin Reg Subcutaneous Co-signature: dosage, concentration and rate verified. --17:28 Stacie Ch R.N. The patient is calm and resting quietly. Overall patient status- she states feels the same. GENERAL / NEURO / PSYCH: Alert. Oriented X 4. --17:41 Leah Dodson R.N. 17:41 04/22/17. BP: 138/81. HR: 84. RR: 16. O2 saturation: 93%. Pain level now: 01/16. --17:41 Leah Dodson R.N. Finger stick glucose: 339 mg/dL; performed by nurse; result shown to the ED physician. --18:14 Leah Dodson R.N. DISPOSITION / DISCHARGE 19:05 04/22/17. BP: 152/85. HR: 88. RR: 20. O2 saturation: 96% on room air. Pain level now: 01/16. --19:25 Lilli Naylor 19:00 04/22/2017 Site #1 removed upon discharge. Catheter intact. Bandaid applied. --19:25 Lilli Naylor 19:05 04/22/17. Condition at departure: stable. The goals identified in the patient's plan of care were met. No learning barriers present. Discharge instructions provided and reviewed with the patient. Reviewed warnings (Do not drive on sedative medications). Reviewed need for increased fluid intake. Patient and spouse verbalized understanding. Written instructions provided in Belarusian. ( Follow up with your PCP on Monday as scheduled. IN the mean time drink plenty of fluids, rest and check your blood sugar frequently. Patient and spouse verbalized understanding and had no questions at this time.). The patient was discharged by the physician. She was discharged home and accompanied by spouse. She left the Emergency Department ambulatory and via private vehicle. Spouse driving. FALL RISK ASSESSMENT: Fall risk assessment completed. No fall risk identified. --19:25 Lilli Naylor. Locked/Released at 04/22/2017 21:19 by Leah Dodson R.N.
--- NOTE | 2017-04-22 15:41 | ED ORDER SUMMARY ---
..... Patient: LEAH VICENTE [facility] VisitID: [id number] [place] [address] 56y, F Registration Date/Time: 04/22/2017 ORDER SHEET Weight: 87 kg (estimated) Allergies: Chantix, Medical tape GENERAL ORDERS: CBC w Diff Urgent (14:12 04/22/2017 Williams POLLARD) (Ack 14:16 Mayra) (14:23 KKnebel R.N.) CMP Urgent (14:12 04/22/2017 Williams POLLARD) (Ack 14:16 Mayra) (14:23 KKnebel R.N.) Amylase Urgent (14:12 04/22/2017 Williams POLLARD) (Ack 14:16 Mayra) (14:23 KKnebel R.N.) Lipase Urgent (14:12 04/22/2017 Williams POLLARD) (Ack 14:16 Mayra) (14:23 KKnebel R.N.) UA-Culture if indicated Urgent (14:12 04/22/2017 Williams POLLARD) (Ack 14:16 Mayra) (14:23 KKnebel R.N.) Acetone, Serum Urgent (14:55 04/22/2017 Williams POLLARD) (15:02 KKnebel R.N.) ABG (G) Urgent (15:03 04/22/2017 Williams POLLARD) (Ack 15:16 AMcQuoid ER Tech1) (15:35 KKnebel R.N.) Lumbar Spine 2 or 3V Urgent (15:05 04/22/2017 Williams POLLARD) (Ack 15:16 AMcQuoid ER Tech1) (15:17 KKnebel R.N.) POC Glucose (15:37 04/22/2017 Williams POLLARD) (15:44 KKnebel R.N.) - (Hemoglobin A1c) (18:43 04/22/2017 Williams POLLARD) (18:52 AMcQuoid ER Tech1) MEDICATION ORDERS: Nicotine Topical 21 mg (NOW) (15:46 04/22/2017 Williams POLLARD) (15:47 KKnebel R.N.) Insulin Reg Subcut 6 units (HIGH ALERT MEDICATION, NOW) (17:23 04/22/2017 Shazia R.N. verbal order read back to Williams POLLARD) (17:24 Shazia R.N.) IV FLUIDS: IV NS : initial bolus 500 mL (1000 mL/hr), then 125 mL/hr for 4h (NOW); Urgent (14:12 04/22/2017 Williams POLLARD) (14:23 Shazia R.N.) (Cancelled: Other14:55 Williams POLLARD) IV NS : initial bolus 1000 mL (1000 mL/hr), then 1000 mL/hr for X2 (NOW); Urgent (14:55 04/22/2017 Williams POLLARD) (15:36 Shazia R.N.) Insulin Reg IV 6 units (HIGH ALERT MEDICATION, NOW) (15:02 04/22/2017 Williams POLLARD) (15:10 Shazia R.N.) Valium IV 2 mg (HIGH ALERT MEDICATION, NOW) (15:04 04/22/2017 Williams POLLARD) (15:35 Shazia R.N.) ORDER SHEET NOTES: [Electronically signed by Say Verduzco MD (19:17 04/22/2017)] [Electronically signed by Leah Dodson R.N. (21:19 04/22/2017)] [Electronically locked/signed by Leah Dodson R.N. (21:19 04/22/2017)]
--- NOTE | 2017-04-22 16:30 | DIAGNOSTIC IMAGING REPORT ---
PROCEDURE: XR LUMBAR SPINE 2 OR 3 VIEWS INDICATION: LOWER BACK PAIN TECHNIQUE: Three views. COMPARISON: None. FINDINGS: Normal alignment without fracture. Straightening of the lumbar spine. Osteopenia. Mild spur formation with mild L4-5 and severe L5-S1 disc space narrowing. Degenerative changes of the lower facets. Atherosclerosis of the abdominal aorta. IMPRESSION: 1. Loss of lordosis suggestive of muscular spasm 2. Mild L4-5 and severe L5-S1 disc space narrowing
[2017-04-22 17:54] VITALS: BP 132/66
--- NOTE | 2017-04-22 21:20 | ED MAR SUMMARY ---
..... Medication Administration Record Formerly [facility] [address] [place] [address] Patient: JESSICA VICENTE Visit ID: [id number] 56y, F Weight: 87.0 kg Height/Length: 67 in BMI: 30.1 ALLERGIES: Medical tape, Chantix Start 14:23 04/22/2017 Jessica Dodson R.N., Stop 15:27 04/22/2017 Jessica Dodson R.N. Medication Administered: IV NS (SALINE), Dose: IV Fluids, Bolus: 500 mL over 30 minute(s), Dispensed: 1000 mL bag, Site: #1 right AC. Medication Ordered: IV NS : initial bolus 500 mL (1000 mL/hr), then 125 mL/hr for 4h (NOW); Urgent. Given 15:10 04/22/2017 Jessica Dodson R.N. Medication Administered: INSULIN REG [IVP], Dose: 6 unit IVP over 1 minute(s), Site: #1 right AC. Medication Ordered: Insulin Reg IV 6 units (HIGH ALERT MEDICATION, NOW). Given 15:30 04/22/2017 Jessica Dodson R.N. Medication Administered: VALIUM [IVP] (DIAZEPAM), Dose: 2 mg IVP over 2 minute(s), Site: #1 right AC. Medication Ordered: Valium IV 2 mg (HIGH ALERT MEDICATION, NOW). Start 15:31 04/22/2017 Jessica Dodson R.N., Stop 16:58 04/22/2017 Jessica Dodson R.N. Medication Administered: IV NS (SALINE), Dose: IV Fluids, Bolus: 1000 mL over 1 hour(s), Dispensed: 1000 mL bag, Site: #1 right AC. Medication Ordered: IV NS : initial bolus 1000 mL (1000 mL/hr), then 1000 mL/hr for X2 (NOW); Urgent. Given 15:47 04/22/2017 Jessica Dodson R.N. Medication Administered: NICOTINE [TOPICAL], Dose: 21 mg Patch/Pad Topical. Medication Ordered: Nicotine Topical 21 mg (NOW). Given 17:24 04/22/2017 Jessica Dodson R.N. Medication Administered: INSULIN REG [SUBCUTANEOUS], Dose: 6 unit Subcutaneous. Medication Ordered: Insulin Reg Subcut 6 units (HIGH ALERT MEDICATION, NOW).
--- NOTE | 2017-04-22 21:20 | ED MAR SUMMARY ---
..... Medication Administration Record [facility] [address] [place] [address] Patient: JESSICA VICENTE Visit ID: [id number] 56y, F Weight: 87.0 kg Height/Length: 67 in BMI: 30.1 ALLERGIES: Medical tape, Chantix Start 14:23 04/22/2017 Jessica Dodson R.N., Stop 15:27 04/22/2017 Jessica Dodson R.N. Medication Administered: IV NS (SALINE), Dose: IV Fluids, Bolus: 500 mL over 30 minute(s), Dispensed: 1000 mL bag, Site: #1 right AC. Medication Ordered: IV NS : initial bolus 500 mL (1000 mL/hr), then 125 mL/hr for 4h (NOW); Urgent. Given 15:10 04/22/2017 Jessica Dodson R.N. Medication Administered: INSULIN REG [IVP], Dose: 6 unit IVP over 1 minute(s), Site: #1 right AC. Medication Ordered: Insulin Reg IV 6 units (HIGH ALERT MEDICATION, NOW). Given 15:30 04/22/2017 Jessica Dodson R.N. Medication Administered: VALIUM [IVP] (DIAZEPAM), Dose: 2 mg IVP over 2 minute(s), Site: #1 right AC. Medication Ordered: Valium IV 2 mg (HIGH ALERT MEDICATION, NOW). Start 15:31 04/22/2017 Jessica Dodson R.N., Stop 16:58 04/22/2017 Jessica Dodson R.N. Medication Administered: IV NS (SALINE), Dose: IV Fluids, Bolus: 1000 mL over 1 hour(s), Dispensed: 1000 mL bag, Site: #1 right AC. Medication Ordered: IV NS : initial bolus 1000 mL (1000 mL/hr), then 1000 mL/hr for X2 (NOW); Urgent. Given 15:47 04/22/2017 Jessica Dodson R.N. Medication Administered: NICOTINE [TOPICAL], Dose: 21 mg Patch/Pad Topical. Medication Ordered: Nicotine Topical 21 mg (NOW). Given 17:24 04/22/2017 Jessica Dodson R.N. Medication Administered: INSULIN REG [SUBCUTANEOUS], Dose: 6 unit Subcutaneous. Medication Ordered: Insulin Reg Subcut 6 units (HIGH ALERT MEDICATION, NOW).
--- NOTE | 2017-04-22 21:20 | ED DISCHARGE INSTRUCTIONS ---
Patient: LEAH VICENTE General Instructions [facility] VisitID: [id number] [place] [address] 56y, F Registration Date/Time: 04/22/2017 Chronic lumbar back pain associated with degenerative disc disease of the lumbar spine. Poorly controlled type 2 diabetes with hyperglycemia and hyperosmolar nonketotic state. INSTRUCTIONS No driving or operating machinery while taking medication. Sedative medication was given during your visit. (talk with your doctor about returning to the use of insulin as discussed.). Warnings: Further evaluation is necessary. GENERAL WARNINGS: Return or contact your physician immediately if your condition worsens or changes unexpectedly, if not improving as expected, or if other problems arise. Your Current Medications: CONTINUE TAKING THE FOLLOWING MEDICATIONS: ALPRAZolam Oral : 1 mg, prn. Amaryl Oral : Tablet 1 mg, 1 tablet 2x a day. Baclofen Oral : 10 mg, prn. Clobetasol Propionate External. Clotrima*. Clotrimazole External. Combivent*. Diltiazem HCl ER Oral : 360 mg daily. Gabapentin Oral : 600 mg 3x a day. MetFORMIN HCl Oral : Tablet 500 mg, 4 tablets at bedtime. Metoprolol Tartrate Oral : 50 mg. Morphine Sulfate ER Oral : 15 mg. Nabumetone Oral : Tablet 500 mg, 2 x day. Remeron Oral : Tablet 30 mg, 1 tablet at bedtime. Venlafaxine HCl Oral : 225 mg daily. Zofran Oral : Tablet 4 mg, 1 tablet 3x a day. Follow-up: Follow up with your doctor Monday in four days as scheduled. Understanding of the discharge instructions verbalized by patient. ADDITIONAL INFORMATION Degenerative Disk Disease Spinal disks are gel-filled cushions between the bones of the spine (vertebrae). The disks act like shock absorbers. Over time, the disks may break down. This disorder is called degenerative disk disease (DDD). DDD can affect the neck or back. It is one of the most common causes of low back pain. It is the leading cause of disability in people under age 45 in the [place]. The pain usually remains localized to the lower back or neck. Muscle spasm is often present and adds to the pain. Disk degeneration is a natural part of aging, although it does not cause pain in most persons. It may also occur as a result of repeated minor injuries due to daily activities, sports, or accidents. It may lead to osteoarthritis of the spine. Back pain related to disk disease may come and go or become chronic and last for months or years. If the disk bulges or ruptures (also called slipped disk or herniated disk), it can put pressure on a nearby spinal nerve and cause neck or back pain that spreads down one arm or leg. X-rays or MRI (magnetic resonance imaging) scan may aid in the diagnosis. For acute pain, treatment consists of anti-inflammatory drugs, muscle relaxants, rest, ice, or heat. Narcotic pain medicines may be needed for short-term treatment of sudden worsening of pain. Due to their addictive potential, narcotics are not advised for long-term pain management. Other types of medicines are preferred. Surgery is usually not used to treat this condition unless there is a complication (such as nerve root compression). Home Care: FOR NECK PAIN: Use a comfortable pillow that supports the head and keeps the spine in a neutral position. The head should not be tilted forward or backward. FOR BACK PAIN: Avoid prolonged sitting. This puts more stress on the lower back than standing or walking. Establishing a regular exercise program to strengthen the supporting muscles of the spine will make it easier to live with DDD. During the first2 days after a flare-up of your pain, apply anice pack to the painful area for 20 minutes every 2-4 hours. This will reduce swelling and pain.Heat (hot shower, hot bath, or heating pad) works well for muscle spasm. You can start with ice, then switch to heat after2 days. Some patients feel best alternating ice and heat treatments. Use the method that feelsbest to you. You may use acetaminophen (Tylenol) or ibuprofen (Motrin, Advil) to control pain, unless another pain medicine was prescribed. [NOTE: If you have chronic liver or kidney disease or ever had a stomach ulcer or GI bleeding, talk with your doctor before using these medicines.] Follow Up with your physician, or as directed by our staff. [NOTE: If x-rays, a CT scan or an MRI scan were taken, they will be reviewed by a radiologist. You will be notified of any new findings that may affect your care.] Return Promptly or contact your doctor if any of the following occur: Increasing back pain New weakness, numbness, or pain in one or both arms or legs Foot drop (foot drags when you walk) Loss of bowel or bladder control Numbness or tingling in the buttock or groin area Unexplained fever over 100.4F (38.0C) Diabetes with High Blood Sugar You have been treated for high blood sugar (hyperglycemia). This may be becauseof an infection or other illness;eating too many sweets or starches ; not taking enough insulin. Home care High blood sugar may cause symptoms that you can learn to recognize, such as these: If you feel like your blood sugar may be too high, measure it using a blood or urine test. If it is above your usual range, use the "sliding scale"rRegular insulin dose your doctor gave you to correct this. If no "sliding scale" orders were given, contact your doctor for further advice. If your blood sugar is over 300, and you can't reach your doctor, go to the hospital emergency room. Monitor and write down your blood sugars - and insulin dose, if you take insulin - atleast twice a day. Do this before breakfast and before dinner. Do this for the next 3 to 5 days. Follow-up care Follow up with your health care provderduring the next week to review your blood sugar records. You will find out if you need to adjust your dose of insulin or other medicine for blood sugar. When to seek medical care Get prompt medical attention if either of these occur: High blood sugar.Symptoms are frequent urination, feeling dizzy, thirst, headache, nausea or vomiting, abdominal pain, and drowsiness or loss of consciousness. Low blood sugar. Symptoms are fatigue, headache, shakes, excess sweating, hunger, anxiety, reduced vision, drowsiness, weakness, confusion or loss of consciousness, and seizure. You have been given the following additional information: Degenerative Disk Disease Diabetic Hyperglycemia No driving or operating machinery while taking medication. Sedative medication was given during your visit. (Electronically signed by Say Verduzco MD 04/22/2017 19:17)
--- NOTE | 2017-04-22 21:20 | ED MED RECONCILIATION SUMMARY ---
Patient: LEAH VICENTE Medication Reconciliation Report [facility] VisitID: [id number] [address] [place] [address] 56y, F Registration Date/Time: 04/22/2017 Weight: 87 kg Height/Length: 67 in. BMI: 30.1 ALLERGIES: Chantix, Medical tape The patient's Home Medications are listed below: CONTINUE TAKING THE FOLLOWING MEDICATIONS: ALPRAZolam Oral 1 mg Amaryl Oral (1 mg) 1 tablet, 2x a day Baclofen Oral 10 mg Clobetasol Propionate External Clotrima Clotrimazole External Combivent Diltiazem HCl ER Oral 360 mg , daily Gabapentin Oral 600 mg, 3x a day MetFORMIN HCl Oral (500 mg) 4 tablets, at bedtime Metoprolol Tartrate Oral 50 mg Morphine Sulfate ER Oral 15 mg Nabumetone Oral (500 mg), 2 x day Remeron Oral (30 mg) 1 tablet, at bedtime Venlafaxine HCl Oral 225 mg , daily Zofran Oral (4 mg) 1 tablet, 3x a day The source(s) of the original Home Medication information: Not obtained. The following Medications were given to the patient in the Emergency Department: IV NS IV Fluids bolus 500 mL over 30 minute(s), administered: 04/22/2017 2:23:00 PM Insulin REG [IVP] IVP 6 unit, administered: 04/22/2017 3:10:00 PM Valium [IVP] IVP 2 mg, administered: 04/22/2017 3:30:00 PM IV NS IV Fluids bolus 1000 mL over 1 hour(s), administered: 04/22/2017 3:31:00 PM NICOTINE [TOPICAL] Topical 21 mg, administered: 04/22/2017 3:47:00 PM Insulin Reg [Subcutaneous] Subcutaneous 6 unit, administered: 04/22/2017 5:24:00 PM The following Medications were prescribed to the patient: None.
--- NOTE | 2017-04-22 21:20 | ED MED RECONCILIATION SUMMARY ---
Patient: LEAH VICENTE Medication Reconciliation Report [facility] VisitID: [id number] [address] [place] [address] 56y, F Registration Date/Time: 04/22/2017 Weight: 87 kg Height/Length: 67 in. BMI: 30.1 ALLERGIES: Chantix, Medical tape The patient's Home Medications are listed below: CONTINUE TAKING THE FOLLOWING MEDICATIONS: ALPRAZolam Oral 1 mg Amaryl Oral (1 mg) 1 tablet, 2x a day Baclofen Oral 10 mg Clobetasol Propionate External Clotrima Clotrimazole External Combivent Diltiazem HCl ER Oral 360 mg , daily Gabapentin Oral 600 mg, 3x a day MetFORMIN HCl Oral (500 mg) 4 tablets, at bedtime Metoprolol Tartrate Oral 50 mg Morphine Sulfate ER Oral 15 mg Nabumetone Oral (500 mg), 2 x day Remeron Oral (30 mg) 1 tablet, at bedtime Venlafaxine HCl Oral 225 mg , daily Zofran Oral (4 mg) 1 tablet, 3x a day The source(s) of the original Home Medication information: Not obtained. The following Medications were given to the patient in the Emergency Department: IV NS IV Fluids bolus 500 mL over 30 minute(s), administered: 04/22/2017 2:23:00 PM Insulin REG [IVP] IVP 6 unit, administered: 04/22/2017 3:10:00 PM Valium [IVP] IVP 2 mg, administered: 04/22/2017 3:30:00 PM IV NS IV Fluids bolus 1000 mL over 1 hour(s), administered: 04/22/2017 3:31:00 PM NICOTINE [TOPICAL] Topical 21 mg, administered: 04/22/2017 3:47:00 PM Insulin Reg [Subcutaneous] Subcutaneous 6 unit, administered: 04/22/2017 5:24:00 PM The following Medications were prescribed to the patient: None.
== END 2017-04-22 19:05 | disposition home or self-care (01) ==
LOC: ED SRH 13:34 → TRANS SRH 16:02
DX: M51.36 Other intervertebral disc degeneration, lumbar region (principal); G89.29 Other chronic pain; E11.65 Type 2 diabetes mellitus with hyperglycemia; E11.00 Type 2 diabetes mellitus with hyperosmolarity without nonketotic hyperglycemic-hyperosmolar coma (NKHHC); E78.00 Pure hypercholesterolemia, unspecified; E03.9 Hypothyroidism, unspecified; I10 Essential (primary) hypertension; I48.91 Unspecified atrial fibrillation; Z79.84 Long term (current) use of oral hypoglycemic drugs; Z79.891 Long term (current) use of opiate analgesic; Z79.899 Other long term (current) drug therapy; Z72.0 Tobacco use
CPT/HCPCS: 90004; 90098; 90100; 90301; 90469; 91286; 92235; 92530; 95059

== ENCOUNTER 2017-04-27 16:16 | Emergency (ER) | payer OTHER ==
--- NOTE | 2017-04-27 17:52 | ED NURSING NOTES ---
Clinical Report - Nurses [facility] [address] [place] [address] 04/27/2017 16:18 Patient: LEAH VICENTE TRIAGE Triage time 16:Apr 27 2017. Acuity: LEVEL 3. Chief Complaint: (Hyperglycemia). 16:32 04/27/17. Alert. No acute distress. ( BGL done in WL=959). SEPSIS SCREEN: Sepsis Screen. Negative (no infection suspected/documented). KIMBER COMA SCORE: Kimber Coma Scale: 15- eyes open spontaneously (4); best verbal response- oriented x 4 (5); best motor response- obeys commands (6). --16:32 Ama Narvaez 16:32 04/27/17. BP: 155/58. HR: 87. RR: 14. O2 saturation: 97%. Temp: 89.2 F. Pain level now 610. --16:32 Ama Narvaez. Weight: 89.9 kg stated. Height/Length: 67 inches Per Patient. BMI: 31.1. --16:30 Ama Narvaez. Medications ALPRAZolam Oral 1 mg, as needed. Amaryl Oral (Tablet 1 mg) 1 tablet, 2x a day. Baclofen Oral 10 mg, as needed. Clobetasol Propionate External. Clotrima. Clotrimazole External. Combivent. Diltiazem HCl ER Oral 360 mg , daily. Gabapentin Oral 600 mg, 3x a day. MetFORMIN HCl Oral (Tablet 500 mg) 4 tablets, at bedtime (hsan't been able to take d/t contrast CT on Tuesday 04/24). Metoprolol Tartrate Oral 50 mg. Morphine Sulfate ER Oral 15 mg . Nabumetone Oral (Tablet 500 mg), 2 x day. Remeron Oral (Tablet 30 mg) 1 tablet, at bedtime. Venlafaxine HCl Oral 225 mg , daily. Zofran Oral (Tablet 4 mg) 1 tablet, 3x a day. --16:23 Ama Narvaez Glimepiride Oral. --16:23 Ama Narvaez Oxycodone-Acetaminophen Oral. --16:24 Ama Narvaez. Medication/allergy information source: the patient. --16:32 Ama Narvaez. Allergies Chantix. Medical tape. --16:23 Ama Narvaez. History Arrived by private vehicle. Historian: patient. Accompanied by daughter. Primary physician ([facility]). This started today. ( Pt reports hyperglycemia that was >600 by home monitor. Pt reports that she had CT with contrast done on Monday for muscle spasm in back and has held metformin since. Pt was put back on lantus and took 46 units (she hasn't been taking it-took herself off of lantus. Reports nausea.). Reports muscle aches. No fever, cough or difficulty breathing. PAST MEDICAL HX: Diabetes mellitus. Hypertension. The patient has had a hysterectomy. SOCIAL HX: Heavy tobacco smoker- 1 pack per day. No alcohol use or drug use. FALL RISK ASSESSMENT: Fall risk assessment completed. No fall risk identified. NUTRITIONAL RISK ASSESSMENT: The nutritional risk assessment revealed no deficiencies. FUNCTIONAL ASSESSMENT: Functional assessment: no impairments noted. LEARNING NEEDS ASSESSMENT: The learning needs assessment revealed no barriers. SKIN INTEGRITY ASSESSMENT: Skin integrity risk assessment completed. No skin integrity risk identified. --16:32 Ama Narvaez. PROBLEMS: Back Pain. Dental Pain. Pyelonephritis. Fibromyalgia. Panic Attack. Herpes Simplex. Hypercholesterolemia. Hypothyroidism. Depression. Lumbar Radiculopathy. Chronic pain. Atrial Fibrillation. Bipolar Disorder. Neuropathy. Lumbar stenosis. Sciatica. Hypertension. Diabetes Mellitus. --16:25 Ama Narvaez. ADDITIONAL SURGERIES: Back Surgery. Cardiac Surgery. Cholecystectomy. . Dental Surgery. Hysterectomy. --16:25 Ama Narvaez. Assessment The patient states feels the same. --16:32 Ama Narvaez. Interventions ID band on patient. --16:32 Ama Narvaez. PHYSICAL ASSESSMENT 16:32 04/27/17. Ambulatory to room. Patient gowned. GENERAL / NEURO / PSYCH: Alert. Oriented X 4. Appears in no acute distress. HEENT: Pupils equal, round and reactive to light. No facial asymmetry noted. Mucous membranes are pink. RESPIRATORY: Respirations not labored. Chest nontender. CVS: Capillary refill less than 2 seconds. Pulses within normal limits. GI / : Abdomen soft and nontender. SKIN: Skin intact. Skin is warm and dry. Normal skin turgor. --16:32 Ama Narvaez. NURSING PROGRESS NOTES 16:32 04/27/2017 Site #1 started via IV in the right antecubital space with an 20g angiocath, with aseptic technique and good blood return; one attempt. Blood drawn: rainbow set. Labeled in the presence of the patient and sent to the lab. Saline lock flushed with 10 mL saline. --16:32 Ama Narvaez 16:33 04/27/17. The plan of care for this patient has been created. Pulse oximeter and NIBP monitor placed on patient; monitor alarms on. Patient gowned. Head of bed elevated. Reassurance given. Two patient identifiers checked. Call light placed in reach. Side rails up x 1. Bed placed in lowest position. Brakes of bed on. Patient ready for evaluation- chart flagged and ED physician and TRAIN DISPATCHER notified. --16:33 Ama Narvaez 16:46 04/27/2017 Started bag #1 1000 mL IV Fluids IV NS (Saline); at 1000 mL/hr over 1 hour(s) via site #1 via IV pump. Allergies verified and confirmed 5 rights. IV patency established. IV site checked: no pain, redness, or swelling. IV flushed thoroughly pre- and post-medication administration. --16:51 Ama Narvaez 17:47 04/27/2017 IV Fluids IV NS Discontinued: bag #1 infused. Total amount infused: 1000 mL. --19:14 Ama Narvaez. DISPOSITION / DISCHARGE Departure time: 1809. --19:27 Daniel Alatorre, RArleneNArlene 18:10. Condition at departure: improved. No learning barriers present. Discharge instructions provided and reviewed with the patient. Reviewed warnings (If Blood Sugar > 300, and you can't reach your trencher driver, return to the ED.). Reviewed medication(s) dosing information (Take your usually prescribed medications. Take Regular Insulin per your sliding scale orders.). 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 Reviewed diet (Diabetic Diet). Patient verbalized understanding. Written instructions provided in [place]. The patient was discharged by the physician. She was discharged home and unaccompanied at time of discharge. She left the Emergency Department ambulatory and via private vehicle. Patient driving. --19:34 Daniel Alatorre R.N. 18:10 04/27/17. BP: 124/74. HR: 80. RR: 16. O2 saturation: 98% on room air. Temp: 98.5 F. Pain level now: 010. --19:36 Daniel Alatorre R.N. Locked/Released at 04/27/2017 19:38 by Daniel Alatorre R.N.
--- NOTE | 2017-04-27 17:52 | ED CLINICAL REPORT ---
Clinical Report - Physicians/Mid Levels [facility] [address] [place] [address] 04/27/2017 16:18 Patient: LEAH VICENTE Time Seen: 1637; upon arrival, initial patient contact, initial documentation, patient care assumed. Arrived- By private vehicle. Historian- patient. HISTORY OF PRESENT ILLNESS Chief Complaint: ABNORMAL GLUCOSE. At its maximum, severity described as severe. When seen in the E.D., severity described as mild. Modifying factors. Not worsened by anything. Not relieved by anything. This started today and is still present. No current or associated symptoms. (checked her sugar this am, and her machine read high, which means greater than 600, took her glyburide, waited a few hours, so took it again, it still read high, so she went to pharmacy, got rx lantus filled and did lantus around noon, not sure what sugar level is now, and now feels off balanced when she walks, afraid she did too much insulin and she may 'tank out', pt did 46 units, which was her prescribed dose, pt admits to being noncompliant with her dm meds, states she stopped her own insulin because she got tired of poking herself). Similar symptoms previously: Chronically, worse. ( says she has had issues with this for many years, and get dehydrated even though she drinks tons of gatorade, pedialyte and water). Recent medical care: The patient was seen recently in the office. ( went to yesterday for routine check up, told her that her brain isn't telling the kidney what to do, blood work done, doesn't know results). REVIEW OF SYSTEMS No fever, difficulty breathing, chest pain, abdominal pain or vomiting. No diarrhea. All systems otherwise negative, except as recorded above. PAST HISTORY See nurses notes. PROBLEMS: Back Pain. Dental Pain. Pyelonephritis. Fibromyalgia. Panic Attack. Herpes Simplex. Hypercholesterolemia. Hypothyroidism. Depression. Lumbar Radiculopathy. Chronic pain. Atrial Fibrillation. Bipolar Disorder. Neuropathy. Lumbar stenosis. Sciatica. Hypertension. Diabetes Mellitus. --16:25 Ama Narvaez. ADDITIONAL SURGERIES: Back Surgery. Cardiac Surgery. Cholecystectomy. . Dental Surgery. Hysterectomy. --16:25 Ama Narvaez. SOCIAL HISTORY Heavy tobacco smoker- less than 1 pack per day. No alcohol use or drug use. No recent travel. Is a local resident. FAMILY HISTORY Negative. ADDITIONAL NOTES The nursing notes have been reviewed with agreement regarding the chief complaint, HPI, ROS, PMH and patient medications and allergies. PHYSICAL EXAM Appearance: Alert. No acute distress. Eyes: Pupils equal, round and reactive to light. Eyes normal inspection. Neck: Normal inspection. Neck supple. CVS: Normal heart rate and rhythm. Heart sounds normal. Pulses normal. Respiratory: No respiratory distress. Breath sounds normal. Chest nontender. Abdomen: No visible injury. Soft and nontender. Mildly obese. Back: Normal inspection. Skin: Skin warm and dry. Normal skin color. No rash. Normal skin turgor. Extremities: Extremities exhibit normal ROM. No lower extremity edema. Neuro: Oriented X 3. No motor deficit. No sensory deficit. LABS, X-RAYS, AND EKG Laboratory Tests: CBC w Diff: (FRANCISCO JAVIER: 04/27/2017 16:30) ( MsgRcvd 04/27/2017 16:53) Final results Test Result Flag Units (Reference) WHITE BLOOD COUNT 15.9 H K/uL (4.5-11.5) RED BLOOD COUNT 4.67 M/uL (4.00-5.20) HEMOGLOBIN 14.1 gm/dL (12.0-16.0) HEMATOCRIT 41.7 % (36.0-46.0) MEAN CELL VOLUME 89 fL (80-100) MEAN CORPUSCULAR HGB 30 pg (26-34) MEAN CORPUSCULAR HGB CONC 34 g/dL (31-37) RED CELL DISTRIBUTION WIDTH 14.0 % (11.6-14.8) PLATELET COUNT 352 K/uL (150-400) NEUTROPHIL % 61.8 % (50-75) LYMPH % 28.5 % (25-40) MONO % 6.4 % (3-14) EOSINOPHIL % 2.9 % (0-4) BASOPHIL % 0.4 % (0-2) CMP: (FRANCISCO JAVIER: 04/27/2017 16:30) ( MsgRcvd 04/27/2017 17:05) Final results Test Result Flag Units (Reference) GLUCOSE 376 H mg/dL (70-110) BUN 21 H mg/dL (7-18) CREATININE 1.3 mg/dL (0.6-1.3) Estimated GFR 45.37 mL/min Estimated GFR- 54.99 mL/min Note: Persistent reduction over 3 months in eGFR<60 mL/min/1.73 m2 defines CKD. Patients with eGFR values>=60 mL/min/1.73 m2 may also have CKD if evidence ofpersistent proteinuria. Additional information may be foundat www.kidney.org. SODIUM 135 L mmol/L (136-145) POTASSIUM 4.8 mmol/L (3.5-5.1) CHLORIDE 99 mmol/L (98-107) CARBON DIOXIDE 25 mmol/L (21-32) CALCIUM 9.8 mg/dL (8.5-10.1) TOTAL PROTEIN 7.1 g/dL (6.4-8.2) ALBUMIN 3.7 g/dL (3.3-5.0) BILIRUBIN, TOTAL 0.3 mg/dL (0.0-1.0) ALKALINE PHOSPHATASE 142 H U/L (46-116) AST (SGOT) 20 U/L (15-37) ALT (SGPT) 33 U/L (12-78) . Bedside Tests: Glucose: mild hyperglycemia - 331 at 1632 (performed at bedside). PROGRESS AND PROCEDURES Course of Care: 16:43 04/27/17. pt has concetta for consistent monthly narcs, last rx 04/05 xanax #30, morphine 15mg #84, oxycodone 5mg #84 and #9 er visits, see report for full details. Patient counseled in person regarding the patient's stable condition, test results and diagnosis. 1745. Differential Diagnosis: Other possible considerations: noncompliant, substance abuse, dka, uncontrolled dm, hyper/hypoglycemia. Above considerations are based on history, physical exam, reassessment and laboratory data. Differential diagnosis was discussed with patient. Disposition: Discharged home in good and improved condition (17:50). Condition: good and stable. CLINICAL IMPRESSION Chronic, moderately well controlled type 1 diabetes with hyperglycemia. No diabetic ketoacidosis or retinopathy, hyperosmolar nonketotic state, coma or neuropathy. No dermopathy or nephropathy. INSTRUCTIONS Warnings: GENERAL WARNINGS: Return or contact your physician immediately if your condition worsens or changes unexpectedly, if not improving as expected, or if other problems arise. Specifically return if problem worsens. Follow-up: Follow up with a specialist Endocrinology in about three days as needed. Call for an appointment. Summary of care provided to patient. Understanding of the discharge instructions verbalized by patient. (Electronically signed by Georgiana Medeiros A.R.N.PArlene 04/27/2017 20:44) Addenda for LEAH VICENTE JOZEF VisitID: [id number] Date: 04/27/2017 04/27/2017 19:58 Temp on arrival was 98.2, not 89.2. (Electronically signed by Ama Narvaez 04/27/2017 19:58)
--- NOTE | 2017-04-27 17:52 | ED ORDER SUMMARY ---
..... Patient: LEAH VICENTE OrderSheet [facility] VisitID: [id number] [address] [place] [address] 56y, F Registration Date/Time: 04/27/2017 ORDER SHEET Weight: 89.9 kg (stated) Allergies: Chantix, Medical tape GENERAL ORDERS: CBC w Diff Urgent (16:42 04/27/2017 HBivens A.R.N.P.) (Ack 16:45 AMcQuoid ER Tech1) (16:45 AMcQuoid ER Tech1) CMP Urgent (16:42 04/27/2017 HBivens A.R.N.P.) (Ack 16:45 AMcQuoid ER Tech1) (16:45 AMcQuoid ER Tech1) MEDICATION ORDERS: IV FLUIDS: IV NS : initial bolus 1000 mL (1000 mL/hr), then none - (NOW) (16:42 04/27/2017 HBivens A.R.N.P.) (Ack 16:44 ASchmuck) (16:51 ASchmuck) IV Saline Lock (16:42 04/27/2017 HBivens A.R.N.P.) (16:43 ASchmuck) ORDER SHEET NOTES: [Electronically signed by Daniel Alatorre R.N. (19:38 04/27/2017)] [Electronically signed by Georgiana MedeirosR.N.P. (20:44 04/27/2017)] [Electronically locked/signed by Daniel Alatorre R.N. (19:38 04/27/2017)]
--- NOTE | 2017-04-27 17:52 | ED ORDER SUMMARY ---
..... Patient: LEAH VICENTE OrderSheet [facility] VisitID: [id number] [address] [place] [address] 56y, F Registration Date/Time: 04/27/2017 ORDER SHEET Weight: 89.9 kg (stated) Allergies: Chantix, Medical tape GENERAL ORDERS: CBC w Diff Urgent (16:42 04/27/2017 HBivens A.R.N.P.) (Ack 16:45 AMcQuoid ER Tech1) (16:45 AMcQuoid ER Tech1) CMP Urgent (16:42 04/27/2017 HBivens A.R.N.P.) (Ack 16:45 AMcQuoid ER Tech1) (16:45 AMcQuoid ER Tech1) MEDICATION ORDERS: IV FLUIDS: IV NS : initial bolus 1000 mL (1000 mL/hr), then none - (NOW) (16:42 04/27/2017 HBivens A.R.N.P.) (Ack 16:44 ASchmuck) (16:51 ASchmuck) IV Saline Lock (16:42 04/27/2017 HBivens A.R.N.P.) (16:43 ASchmuck) ORDER SHEET NOTES: [Electronically signed by Daniel Alatorre R.N. (19:38 04/27/2017)] [Electronically signed by Georgiana MedeirosR.N.P. (20:44 04/27/2017)] [Electronically locked/signed by Daniel Alatorre R.N. (19:38 04/27/2017)]
--- NOTE | 2017-04-27 17:52 | ED NURSING NOTES ---
Clinical Report - Nurses [facility] [address] [place] [address] 04/27/2017 16:18 Patient: LEAH VICENTE TRIAGE Triage time 16:Apr 27 2017. Acuity: LEVEL 3. Chief Complaint: (Hyperglycemia). 16:32 04/27/17. Alert. No acute distress. ( BGL done in WM=944). SEPSIS SCREEN: Sepsis Screen. Negative (no infection suspected/documented). KIMBER COMA SCORE: Kimber Coma Scale: 15- eyes open spontaneously (4); best verbal response- oriented x 4 (5); best motor response- obeys commands (6). --16:32 Ama Narvaez 16:32 04/27/17. BP: 155/58. HR: 87. RR: 14. O2 saturation: 97%. Temp: 89.2 F. Pain level now 610. --16:32 Ama Narvaez. Weight: 89.9 kg stated. Height/Length: 67 inches Per Patient. BMI: 31.1. --16:30 Ama Narvaez. Medications ALPRAZolam Oral 1 mg, as needed. Amaryl Oral (Tablet 1 mg) 1 tablet, 2x a day. Baclofen Oral 10 mg, as needed. Clobetasol Propionate External. Clotrima. Clotrimazole External. Combivent. Diltiazem HCl ER Oral 360 mg , daily. Gabapentin Oral 600 mg, 3x a day. MetFORMIN HCl Oral (Tablet 500 mg) 4 tablets, at bedtime (hsan't been able to take d/t contrast CT on Tuesday 04/24). Metoprolol Tartrate Oral 50 mg. Morphine Sulfate ER Oral 15 mg . Nabumetone Oral (Tablet 500 mg), 2 x day. Remeron Oral (Tablet 30 mg) 1 tablet, at bedtime. Venlafaxine HCl Oral 225 mg , daily. Zofran Oral (Tablet 4 mg) 1 tablet, 3x a day. --16:23 Ama Narvaez Glimepiride Oral. --16:23 Ama Narvaez Oxycodone-Acetaminophen Oral. --16:24 Ama Narvaez. Medication/allergy information source: the patient. --16:32 Ama Narvaez. Allergies Chantix. Medical tape. --16:23 Ama Narvaez. History Arrived by private vehicle. Historian: patient. Accompanied by daughter. Primary physician ([facility]). This started today. ( Pt reports hyperglycemia that was >600 by home monitor. Pt reports that she had CT with contrast done on Monday for muscle spasm in back and has held metformin since. Pt was put back on lantus and took 46 units (she hasn't been taking it-took herself off of lantus. Reports nausea.). Reports muscle aches. No fever, cough or difficulty breathing. PAST MEDICAL HX: Diabetes mellitus. Hypertension. The patient has had a hysterectomy. SOCIAL HX: Heavy tobacco smoker- 1 pack per day. No alcohol use or drug use. FALL RISK ASSESSMENT: Fall risk assessment completed. No fall risk identified. NUTRITIONAL RISK ASSESSMENT: The nutritional risk assessment revealed no deficiencies. FUNCTIONAL ASSESSMENT: Functional assessment: no impairments noted. LEARNING NEEDS ASSESSMENT: The learning needs assessment revealed no barriers. SKIN INTEGRITY ASSESSMENT: Skin integrity risk assessment completed. No skin integrity risk identified. --16:32 Ama Narvaez. PROBLEMS: Back Pain. Dental Pain. Pyelonephritis. Fibromyalgia. Panic Attack. Herpes Simplex. Hypercholesterolemia. Hypothyroidism. Depression. Lumbar Radiculopathy. Chronic pain. Atrial Fibrillation. Bipolar Disorder. Neuropathy. Lumbar stenosis. Sciatica. Hypertension. Diabetes Mellitus. --16:25 Ama Narvaez. ADDITIONAL SURGERIES: Back Surgery. Cardiac Surgery. Cholecystectomy. . Dental Surgery. Hysterectomy. --16:25 Ama Narvaez. Assessment The patient states feels the same. --16:32 Ama Narvaez. Interventions ID band on patient. --16:32 Ama Narvaez. PHYSICAL ASSESSMENT 16:32 04/27/17. Ambulatory to room. Patient gowned. GENERAL / NEURO / PSYCH: Alert. Oriented X 4. Appears in no acute distress. HEENT: Pupils equal, round and reactive to light. No facial asymmetry noted. Mucous membranes are pink. RESPIRATORY: Respirations not labored. Chest nontender. CVS: Capillary refill less than 2 seconds. Pulses within normal limits. GI / : Abdomen soft and nontender. SKIN: Skin intact. Skin is warm and dry. Normal skin turgor. --16:32 Ama Narvaez. NURSING PROGRESS NOTES 16:32 04/27/2017 Site #1 started via IV in the right antecubital space with an 20g angiocath, with aseptic technique and good blood return; one attempt. Blood drawn: rainbow set. Labeled in the presence of the patient and sent to the lab. Saline lock flushed with 10 mL saline. --16:32 Ama Narvaez 16:33 04/27/17. The plan of care for this patient has been created. Pulse oximeter and NIBP monitor placed on patient; monitor alarms on. Patient gowned. Head of bed elevated. Reassurance given. Two patient identifiers checked. Call light placed in reach. Side rails up x 1. Bed placed in lowest position. Brakes of bed on. Patient ready for evaluation- chart flagged and ED physician and LOOM BLOWER notified. --16:33 Ama Narvaez 16:46 04/27/2017 Started bag #1 1000 mL IV Fluids IV NS (Saline); at 1000 mL/hr over 1 hour(s) via site #1 via IV pump. Allergies verified and confirmed 5 rights. IV patency established. IV site checked: no pain, redness, or swelling. IV flushed thoroughly pre- and post-medication administration. --16:51 Ama Narvaez 17:47 04/27/2017 IV Fluids IV NS Discontinued: bag #1 infused. Total amount infused: 1000 mL. --19:14 Ama Narvaez. DISPOSITION / DISCHARGE Departure time: 1809. --19:27 Daniel Alatorre, RArleneNArleen 18:10. Condition at departure: improved. No learning barriers present. Discharge instructions provided and reviewed with the patient. Reviewed warnings (If Blood Sugar > 300, and you can't reach your primary clinician, return to the ED.). Reviewed medication(s) dosing information (Take your usually prescribed medications. Take Regular Insulin per your sliding scale orders.). 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 Reviewed diet (Diabetic Diet). Patient verbalized understanding. Written instructions provided in [place]. The patient was discharged by the physician. She was discharged home and unaccompanied at time of discharge. She left the Emergency Department ambulatory and via private vehicle. Patient driving. --19:34 Daniel Alatorre R.N. 18:10 04/27/17. BP: 124/74. HR: 80. RR: 16. O2 saturation: 98% on room air. Temp: 98.5 F. Pain level now: 010. --19:36 Daniel Alatorre R.N. Locked/Released at 04/27/2017 19:38 by Daniel Alatorre R.N.
--- NOTE | 2017-04-27 20:44 | ED MAR SUMMARY ---
..... Medication Administration Record [facility] [address] [place] [address] Patient: LEAH VICENTE Visit ID: [id number] 56y, F Weight: 89.9 kg Height/Length: 67 in BMI: 31.1 ALLERGIES: [employer], Medical tape Start 16:46 04/27/2017 Ama Narvaez,, Stop 17:47 04/27/2017 Ama Narvaez, Medication Administered: IV NS (SALINE), Dose: IV Fluids over 1 hour(s), Rate: 1000 mL/hr, Dispensed: 1000 mL bag, Site: #1 right AC. Medication Ordered: IV NS : initial bolus 1000 mL (1000 mL/hr), then none - (NOW).
--- NOTE | 2017-04-27 20:44 | ED MED RECONCILIATION SUMMARY ---
Patient: LEAH VICENTE JOZEF Medication Reconciliation Report [facility] VisitID: [id number] [address] [place] [address] 56y, F Registration Date/Time: 04/27/2017 Weight: 89.9 kg Height/Length: 67 in. BMI: 31.1 ALLERGIES: Chantix, Medical tape The patient's Home Medications are listed below: THE FOLLOWING MEDICATIONS NEED TO BE RECONCILED: ALPRAZolam Oral 1 mg Amaryl Oral (1 mg) 1 tablet, 2x a day Baclofen Oral 10 mg Clobetasol Propionate External Clotrima Clotrimazole External Combivent Diltiazem HCl ER Oral 360 mg , daily Gabapentin Oral 600 mg, 3x a day Glimepiride Oral MetFORMIN HCl Oral (500 mg) 4 tablets, at bedtime, hsan't been able to take d/t contrast CT on Tuesday 04/24 Metoprolol Tartrate Oral 50 mg Morphine Sulfate ER Oral 15 mg Nabumetone Oral (500 mg), 2 x day Oxycodone-Acetaminophen Oral Remeron Oral (30 mg) 1 tablet, at bedtime Venlafaxine HCl Oral 225 mg , daily Zofran Oral (4 mg) 1 tablet, 3x a day The source(s) of the original Home Medication information: patient The following Medications were given to the patient in the Emergency Department: IV NS IV Fluids bolus 0, then 1000 mL/hr, administered: 04/27/2017 4:46:00 PM The following Medications were prescribed to the patient: None.
--- NOTE | 2017-04-27 20:44 | ED MED RECONCILIATION SUMMARY ---
Patient: LEAH VICENTE JOZEF Medication Reconciliation Report [facility] VisitID: [id number] [address] [place] [address] 56y, F Registration Date/Time: 04/27/2017 Weight: 89.9 kg Height/Length: 67 in. BMI: 31.1 ALLERGIES: Chantix, Medical tape The patient's Home Medications are listed below: THE FOLLOWING MEDICATIONS NEED TO BE RECONCILED: ALPRAZolam Oral 1 mg Amaryl Oral (1 mg) 1 tablet, 2x a day Baclofen Oral 10 mg Clobetasol Propionate External Clotrima Clotrimazole External Combivent Diltiazem HCl ER Oral 360 mg , daily Gabapentin Oral 600 mg, 3x a day Glimepiride Oral MetFORMIN HCl Oral (500 mg) 4 tablets, at bedtime, hsan't been able to take d/t contrast CT on Tuesday 04/24 Metoprolol Tartrate Oral 50 mg Morphine Sulfate ER Oral 15 mg Nabumetone Oral (500 mg), 2 x day Oxycodone-Acetaminophen Oral Remeron Oral (30 mg) 1 tablet, at bedtime Venlafaxine HCl Oral 225 mg , daily Zofran Oral (4 mg) 1 tablet, 3x a day The source(s) of the original Home Medication information: patient The following Medications were given to the patient in the Emergency Department: IV NS IV Fluids bolus 0, then 1000 mL/hr, administered: 04/27/2017 4:46:00 PM The following Medications were prescribed to the patient: None.
--- NOTE | 2017-04-27 20:44 | ED MAR SUMMARY ---
..... Medication Administration Record [facility] [address] [place] [address] Patient: LEAH VICENTE Visit ID: [id number] 56y, F Weight: 89.9 kg Height/Length: 67 in BMI: 31.1 ALLERGIES: Chantix, Medical tape Start 16:46 04/27/2017 Ama Narvaez,, Stop 17:47 04/27/2017 Ama Narvaez, Medication Administered: IV NS (SALINE), Dose: IV Fluids over 1 hour(s), Rate: 1000 mL/hr, Dispensed: 1000 mL bag, Site: #1 right AC. Medication Ordered: IV NS : initial bolus 1000 mL (1000 mL/hr), then none - (NOW).
--- NOTE | 2017-04-27 20:44 | ED DISCHARGE INSTRUCTIONS ---
Patient: LEAH VICENTE General Instructions [facility] VisitID: [id number] [place] [address] 56y, F Registration Date/Time: 04/27/2017 Chronic, moderately well controlled type 1 diabetes with hyperglycemia. No diabetic ketoacidosis or retinopathy, hyperosmolar nonketotic state, coma or neuropathy. No dermopathy or nephropathy. INSTRUCTIONS Warnings: GENERAL WARNINGS: Return or contact your physician immediately if your condition worsens or changes unexpectedly, if not improving as expected, or if other problems arise. Specifically return if problem worsens. Follow-up: Follow up with a specialist Endocrinology in about three days as needed. Call for an appointment. Summary of care provided to patient. Understanding of the discharge instructions verbalized by patient. ADDITIONAL INFORMATION Diabetes with High Blood Sugar You have been treated for high blood sugar (hyperglycemia). This may be becauseof an infection or other illness;eating too many sweets or starches ; not taking enough insulin. Home care High blood sugar may cause symptoms that you can learn to recognize, such as these: If you feel like your blood sugar may be too high, measure it using a blood or urine test. If it is above your usual range, use the "sliding scale"rRegular insulin dose your doctor gave you to correct this. If no "sliding scale" orders were given, contact your doctor for further advice. If your blood sugar is over 300, and you can't reach your doctor, go to the hospital emergency room. Monitor and write down your blood sugars - and insulin dose, if you take insulin - atleast twice a day. Do this before breakfast and before dinner. Do this for the next 3 to 5 days. Follow-up care [facility] to review your blood sugar records. You will find out if you need to adjust your dose of insulin or other medicine for blood sugar. When to seek medical care Get prompt medical attention if either of these occur: High blood sugar.Symptoms are frequent urination, feeling dizzy, thirst, headache, nausea or vomiting, abdominal pain, and drowsiness or loss of consciousness. Low blood sugar. Symptoms are fatigue, headache, shakes, excess sweating, hunger, anxiety, reduced vision, drowsiness, weakness, confusion or loss of consciousness, and seizure. Diabetes (General Information) Cells of the body need glucose (sugar) for fuel. Insulin is the hormone in the body that lets glucose move from the blood into the cells. Diabetes is a chronic health condition where the body is not able to produce enough insulin, or does not respond well to its own insulin. Because the glucose in the blood cannot get into the cells, it builds up in the blood causing high blood sugar (hyperglycemia). Your actual blood sugar level is a result of the balance between several factors. These include what kind of food you eat and how much of it you eat, how much exercise you get, and the amount of insulin present in your body. Eating too much of the wrong kinds of food or not taking diabetes medicine on time can cause high blood sugar. Infections can cause high blood sugar even if you are taking medicines correctly. Missing meals, not eating enough food, or taking too much diabetes medicine can lead to low blood sugar. Untreated over long periods of time, diabetes can cause serious problems such as heart disease, stroke, kidney failure, blindness, nerve pain or loss of feeling in the legs and feet, and gangrene of the feet. With good treatment keeping your blood sugar under control, you can prevent or delay the complications of diabetes. Normal blood sugar levels are 70-130 one to two hours before a meal and not more than 180 two hours after a meal. Home Care: Follow your prescribed diabetic diet and take insulin or oral diabetic medicine exactly as ordered. Monitor blood sugars as advised. Keep a log of your results. This will help your doctor adjust your medicines to keep your blood sugar under control. Try to achieve your ideal weight. Proper diet and exercise can reduce or eliminate the need to take diabetes medicine. Avoid tobacco smoking, which worsens the effect of diabetes on your circulation. The risk of a heart attack in a diabetic is 15 times more likely if you smoke. Pay attention to good foot care. If you have lost feeling in your feet you may not notice an injury or infection. Check your feet and between your toes at least once a week. Wear a medical alert bracelet or carry a card in your wallet explaining that you are diabetic. In the event that you become very ill and are unable to give this information, it will help medical personnel provide proper care. If you become sick with a cold, the flu, or an infection (viral or bacterial), please do the following: Review your diabetes sick plan and contact your physician as instructed. You may have been advised to call the doctor immediately if: Your blood sugar is above 240 while taking your diabetes medication Your urine ketone levels are above normal or showing high levels of ketones You have been vomiting more than 6 hours You experience difficulty to trouble breathing You develop a high fever or you have had a fever for a couple of days and you aren't getting better You become light-headed and more sleepy than usual Keep taking your oral diabetes medicine (pills) even if you have been vomiting and feeling sick. Contact your doctor immediately for advice because you may need insulin to lower your blood sugar until you recover from your illness. Keep taking your insulin, even if you have been vomiting and feeling sick. Call your doctor immediately and ask if a temporary adjustment of your insulin dose is needed based on your blood glucose (sugar) results. Check your blood sugar every 2 to 4 hours, or at least 4 times a day. Check your keytones often. If you are vomiting and having diarrhea, monitor them more frequently. Don't skip meals. Try to eat small meals on a regular schedule, even if you do not have an appetite. Drink water or other calorie-free, non-caffeinated liquids to stay hydrated. If you are nauseated or vomiting, drink small amounts (sips, a teaspoon) every 5 minutes. To prevent dehydration, try to drink a cup or 8 ounces of fluids every hour while you are awake. Always carry a source of fast-acting sugar with you in case you get symptoms of low blood sugar (below 70). At the first sign of low blood sugar, eat or drink 15 to 20 grams of fast-acting sugar to raise your blood sugar. Examples include: 3 to 4 glucose tablets (found at most drugstores) 4 ounces (1/2 cup) of regular (not diet) softdrinks 4 ounces (1/2 cup) of any fruit juice 8 ounces (1 cup) of milk 5 to 6 pieces of hard candy 1 tablespoon of honey Check your blood sugar 15 minutes after treating yourself. If it is still low (below 70), take another 15 to 20 grams of fast-acting sugar. Test again in 15 minutes. If it returns to normal (70 or above), eat a snack or meal to keep your blood sugar in a safe range. If it remains low, call your doctor or go to an emergency room. Follow Up with your doctor as advised by our staff. For more information, contact the [employer]. www.diabetes.org or 882-277-9045. Get Prompt Medical Attention if any of the following occur: HIGH BLOOD SUGAR: frequent urination, dizziness, drowsiness, thirst, headache, nausea or vomiting, abdominal pain, vision changes, fast breathing, confusion or loss of consciousness LOW BLOOD SUGAR: fatigue, headache, shakes, excess sweating, hunger, feeling anxious or restless, vision changes, drowsiness, weakness, confusion or loss of consciousness Chest pain or shortness of breath Dizziness or fainting Weakness of an arm or leg or one side of the face Trouble with speech or vision You have been given the following additional information: Diabetic Hyperglycemia Diabetes, General Info (Electronically signed by Georgiana Medeiros A.R.N.P. 04/27/2017 20:44)
== END 2017-04-27 18:10 | disposition home or self-care (01) ==
LOC: ED SRH 16:16
DX: E10.65 Type 1 diabetes mellitus with hyperglycemia (principal); Z88.8 Allergy status to other drugs, medicaments and biological substances; E78.00 Pure hypercholesterolemia, unspecified; E03.9 Hypothyroidism, unspecified; I48.91 Unspecified atrial fibrillation; F31.9 Bipolar disorder, unspecified; I10 Essential (primary) hypertension; Z79.84 Long term (current) use of oral hypoglycemic drugs; Z79.899 Other long term (current) drug therapy; F17.210 Nicotine dependence, cigarettes, uncomplicated
CPT/HCPCS: 90098; 90100; 95059